=== PATIENT | male | born 1995 | race Caucasian/White ===

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

== ENCOUNTER 2017-01-08 13:56 | Emergency (ER) | payer MEDICAID ==
--- NOTE | 2017-01-08 14:16 | EDM.PDOC ---
ED HPI GENERAL MEDICAL PROBLEM - General Chief Complaint: Respiratory Problem Stated Complaint: Rx NEEDED Time Seen by Provider: 01/08/17 14:02 - History of Present Illness INITIAL COMMENTS - FREE TEXT/NARRATIVE: HISTORY AND PHYSICAL: History of present illness: The patient is a 21-year-old male with a history of asthma who presents for medication refill of his albuterol for his nebulizer machine as well as his Ventolin inhaler. Patient states he does nebulizer treatments when he needs them and often times he needs them at nighttime because he feels tight. Patient ran out of the albuterol for the nebulizer 3 days ago and ran out of his hand- held Ventolin yesterday. He has had no fever chills runny nose or new cough but says that he does feel somewhat tight from his asthma. He is not been on prednisone recently. The patient was seen here the beginning of November for med refill and did not follow-up and that was discussed as well. He denies any abdominal pain chest pain nausea or vomiting. Patient states he was a smoker and he has since quit Review of systems: As per history of present illness and below otherwise all systems reviewed and negative. Past medical history: As per history of present illness and as reviewed below otherwise noncontributory. Surgical history: As per history of present illness and as reviewed below otherwise noncontributory. Social history: No reported history of drug or alcohol abuse. Family history: As per history of present illness and as reviewed below otherwise noncontributory. Physical exam: Gen.: Well-developed thin man who is nontoxic and vital signs reviewed by me. He is speaking clearly and easily without breathlessness HEENT: Atraumatic, normocephalic, negative for conjunctival pallor or scleral icterus, mucous membranes moist, throat clear, neck supple, nontender, trachea midline. Lungs: Clear to auscultation with some scattered wheezing in the bases but no worker breathing or sensory muscle use, breath sounds equal bilaterally, chest nontender. Heart: S1S2, regular rate and rhythm no overt murmurs. Abdomen: Soft, nondistended, nontender. NABS Skin: Normal turgor no evidence of any diaphoresis or overt rashes Genitourinary: Deferred. Rectal: Deferred. Extremities: Atraumatic, negative for cords or calf pain. Neurovascular unremarkable. Neuro: Awake, alert, oriented. Cranial nerves II through XII unremarkable. Cerebellum unremarkable. Motor and sensory unremarkable throughout. Exam nonfocal. Diagnostics: [] Therapeutics: [] The patient was offered a DuoNeb when necessary he would like to defer and do it at home. I will write him a prescription for albuterol for his machine, Ventolin inhaler, prednisone. Advised him that he must call and follow-up in our clinic for further care and refills and he must push hydration. Impression: Medication refill Definitive disposition and diagnosis as appropriate pending reevaluation and review of above. - Related Data Allergies Allergy/AdvReac Type Severity Reaction Status Date / Time No Known Allergies Allergy Verified 01/08/17 13:59 Home Meds: Home Meds Albuterol [Proventil Neb Soln] 1 11/29/16 [History] Albuterol [Ventolin HFA] 1 puff INH TID 11/29/16 [History] Past Medical History HEENT History: Reports: None Cardiovascular History: Reports: None Respiratory History: Reports: Asthma - Past Surgical History HEENT Surgical History: Reports: None Social & Family History - Tobacco Use Smoking Status *Q: Former Smoker Used Tobacco, but Quit: Yes Month Tobacco Last Used: 5 ED ROS GENERAL - Review of Systems Review Of Systems: ROS reveals no pertinent complaints other than HPI. ED EXAM, GENERAL - Physical Exam Exam: See Below (See dictation) Course - Vital Signs Last Recorded V/S: Last Vital Signs Temp 36.4 C 01/08/17 14:00 Pulse 99 01/08/17 14:00 Resp 20 01/08/17 14:00 BP 127/82 01/08/17 14:00 Pulse Ox 98 01/08/17 14:00 Departure - Departure Time of Disposition: 14:16 Disposition: Home, Self-Care 01 Condition: Good Clinical Impression: Medication refill - Discharge Information Referrals: PCP,None [Primary Care Provider] - Additional Instructions: The following information is given to patients seen in the emergency department who are being discharged to home. This information is to outline your options for follow-up care. We provide all patients seen in our emergency department with a follow-up referral. The need for follow-up, as well as the timing and circumstances, are variable depending upon the specifics of your emergency department visit. If you don't have a primary care physician on staff, we will provide you with a referral. We always advise you to contact your personal physician following an emergency department visit to inform them of the circumstance of the visit and for follow-up with them and/or the need for any referrals to a consulting specialist. The emergency department will also refer you to a specialist when appropriate. This referral assures that you have the opportunity for followup care with a specialist. All of these measure are taken in an effort to provide you with optimal care, which includes your followup. Under all circumstances we always encourage you to contact your private physician who remains a resource for coordinating your care. When calling for followup care, please make the office aware that this follow-up is from your recent emergency room visit. If for any reason you are refused follow-up, please contact the [facility] emergency department at and ask to speak to the emergency department charge nurse. [facility] Primary care- Internal Medicine and Family [address] [address] Please push hydration and use your inhaler or the albuterol in the machine every 6 hours for the next 24 hours and then as needed. Take prednisone until it is finished. Please call the clinic and schedule an appointment for follow- up and further care early next week and return to ER as needed and as discussed
[2017-01-08 14:26] VITALS: BP 118/62
== END 2017-01-08 14:24 | disposition home or self-care (01) ==
LOC: MW.ED 13:56
DX: Z76.0 Encounter for issue of repeat prescription (principal); J45.909 Unspecified asthma, uncomplicated; Z87.891 Personal history of nicotine dependence
CPT/HCPCS: 99281

== ENCOUNTER 2017-02-08 23:13 | Emergency (ER) | payer MEDICAID ==
--- NOTE | 2017-02-09 00:31 | EDM.PDOC ---
ED HPI GENERAL MEDICAL PROBLEM - General Chief Complaint: General Stated Complaint: MEDICAL CLEARANCE Time Seen by Provider: 02/09/17 00:29 Source of Information: Reports: Patient - History of Present Illness INITIAL COMMENTS - FREE TEXT/NARRATIVE: HISTORY AND PHYSICAL: History of present illness: []Patient presents via [facility] in handcuffs he was arrested for driving while intoxicated He has a history of ADHD and asthma is clinically intoxicated but alert cooperative easily examined No fever nausea vomiting chills sweats no chest pain shortness breath headache dizziness palpitation about a urine symptoms Review of systems: As per history of present illness and below otherwise all systems reviewed and negative. Past medical history: As per history of present illness and as reviewed below otherwise noncontributory. Surgical history: As per history of present illness and as reviewed below otherwise noncontributory. Social history: No reported history of drug or alcohol abuse. Family history: As per history of present illness and as reviewed below otherwise noncontributory. Physical exam: HEENT: Atraumatic, normocephalic, pupils reactive, negative for conjunctival pallor or scleral icterus, mucous membranes moist, throat clear, neck supple, nontender, trachea midline. Lungs: Clear to auscultation, breath sounds equal bilaterally, chest nontender. Heart: S1S2, regular, negative for clicks, rubs, or JVD. Abdomen: Soft, nondistended, nontender. Negative for masses or hepatosplenomegaly. Negative for costovertebral tenderness. Pelvis: Stable nontender. Genitourinary: Deferred. Rectal: Deferred. Extremities: Atraumatic, negative for cords or calf pain. Neurovascular unremarkable. Neuro: Awake, alert, oriented. Cranial nerves II through XII unremarkable. Cerebellum unremarkable. Motor and sensory unremarkable throughout. Exam nonfocal. Diagnostics: [Clinical ] Therapeutics: [None ] Impression: [Clinical alcohol intoxication Chronic history of baseline Patient medically cleared for incarceration his albuterol inhaler will be available as needed] Definitive disposition and diagnosis as appropriate pending reevaluation and review of above. - Related Data Allergies Allergy/AdvReac Type Severity Reaction Status Date / Time cat dander Allergy Hives Verified 02/08/17 23:37 dog dander Allergy Hives Verified 02/08/17 23:37 Home Meds: Home Meds Albuterol [Proventil Neb Soln] 1 11/29/16 [History] Albuterol [Ventolin HFA] 1 puff INH TID 11/29/16 [History] Past Medical History HEENT History: Reports: None Cardiovascular History: Reports: None Respiratory History: Reports: Asthma Gastrointestinal History: Reports: None Genitourinary History: Reports: None Musculoskeletal History: Reports: None Neurological History: Reports: None Psychiatric History: Reports: ADHD Endocrine/Metabolic History: Reports: None Hematologic History: Reports: None Immunologic History: Reports: None Oncologic (Cancer) History: Reports: None Dermatologic History: Reports: None - Infectious Disease History Infectious Disease History: Reports: None - Past Surgical History Head Surgeries/Procedures: Reports: None HEENT Surgical History: Reports: None GI Surgical History: Reports: None Male Surgical History: Reports: None Social & Family History - Tobacco Use Smoking Status *Q: Current Every Day Smoker Years of Tobacco use: 4 Packs/Tins Daily: 0.3 Used Tobacco, but Quit: Yes Month Tobacco Last Used: 5 - Caffeine Use Caffeine Use: Reports: None - Recreational Drug Use Recreational Drug Use: Yes Drug Use in Last 12 Months: No Recreational Drug Type: Reports: Marijuana/Hashish ED ROS GENERAL - Review of Systems Review Of Systems: ROS reveals no pertinent complaints other than HPI. ED EXAM, GENERAL - Physical Exam Exam: See Below Course - Vital Signs Last Recorded V/S: Last Vital Signs Temp 37.1 C 02/08/17 23:38 Pulse 111 H 02/08/17 23:38 Resp 17 02/08/17 23:38 BP 125/62 02/08/17 23:38 Pulse Ox 94 L 02/08/17 23:38 Departure - Departure Time of Disposition: 00:30 Disposition: Home, Self-Care 01 Condition: Good Clinical Impression: Alcohol intoxication - Discharge Information Referrals: PCP,None [Primary Care Provider] - Additional Instructions: The following information is given to patients seen in the emergency department who are being discharged to home. This information is to outline your options for follow-up care. We provide all patients seen in our emergency department with a follow-up referral. The need for follow-up, as well as the timing and circumstances, are variable depending upon the specifics of your emergency department visit. If you don't have a primary care physician on staff, we will provide you with a referral. We always advise you to contact your personal physician following an emergency department visit to inform them of the circumstance of the visit and for follow-up with them and/or the need for any referrals to a consulting specialist. The emergency department will also refer you to a specialist when appropriate. This referral assures that you have the opportunity for follow-up care with a specialist. All of these measure are taken in an effort to provide you with optimal care, which includes your follow-up. Under all circumstances we always encourage you to contact your private physician who remains a resource for coordinating your care. When calling for follow-up care, please make the office aware that this follow-up is from your recent emergency room visit. If for any reason you are refused follow-up, please contact the [facility] emergency department at and asked to speak to the emergency department charge nurse.
[2017-02-09 05:03] VITALS: BP 127/73
== END 2017-02-09 00:56 ==
LOC: MW.ED 23:13
DX: F10.129 Alcohol abuse with intoxication, unspecified (principal); F17.210 Nicotine dependence, cigarettes, uncomplicated; J45.909 Unspecified asthma, uncomplicated; Z91.048 Other nonmedicinal substance allergy status
CPT/HCPCS: 99282; 99283

== ENCOUNTER 2017-02-27 13:28 | Emergency (ER) | payer MEDICAID ==
[2017-02-27 13:40] VITALS: BP 121/74
--- NOTE | 2017-02-27 13:47 | EDM.PDOC ---
ED HPI GENERAL MEDICAL PROBLEM - General Chief Complaint: Respiratory Problem Stated Complaint: REFILL ON INHALER Time Seen by Provider: 02/27/17 13:34 - History of Present Illness INITIAL COMMENTS - FREE TEXT/NARRATIVE: HISTORY AND PHYSICAL: History of present illness: The patient is a 21-year-old male with a long-standing history of asthma since he was a child who presents after running out of his inhaler last evening. He says he has been using it only as needed and not on a regular basis and does not have a local provider as he has no healthcare insurance. He currently says that he does not feel terribly short of breath but wants to have his inhaler because he does have flareups and wants to have that resource. He has no chest pain or shortness of breath currently no abdominal pain no fevers no chills no upper respiratory symptoms. Eating and drinking normally Review of systems: As per history of present illness and below otherwise all systems reviewed and negative. Past medical history: As per history of present illness and as reviewed below otherwise noncontributory. Surgical history: As per history of present illness and as reviewed below otherwise noncontributory. Social history: No reported history of drug or alcohol abuse. Family history: As per history of present illness and as reviewed below otherwise noncontributory. Physical exam: Gen.: Well-developed well-nourished man speaking clearly and easily in the ED without breathlessness. Vital signs of been reviewed by me HEENT: Atraumatic, normocephalic, negative for conjunctival pallor or scleral icterus, mucous membranes moist, throat clear, neck supple, nontender, trachea midline. Lungs: Clear to auscultation, breath sounds equal bilaterally, chest nontender. No work or breathing no stridor no wheezing Heart: S1S2, regular rate and rhythm no overt murmurs Abdomen: Soft, nondistended, nontender. NABS. Pelvis: Deferred Genitourinary: Deferred. Rectal: Deferred. Extremities: Atraumatic, full range of motion. Neurovascular unremarkable. Neuro: Awake, alert, oriented. Cranial nerves II through XII unremarkable. Cerebellum unremarkable. Motor and sensory unremarkable throughout. Exam nonfocal. Diagnostics: [] Therapeutics: Spacer and teaching Impression: Medication refill for inhaler Definitive disposition and diagnosis as appropriate pending reevaluation and review of above. - Related Data Allergies Allergy/AdvReac Type Severity Reaction Status Date / Time cat dander Allergy Hives Verified 02/27/17 13:39 dog dander Allergy Hives Verified 02/27/17 13:39 Home Meds: Home Meds Albuterol [Proventil Neb Soln] 1 dose INH ASDIRECTED 11/29/16 [History] Albuterol [Ventolin HFA] 1 puff INH TID 11/29/16 [History] Past Medical History HEENT History: Reports: None Cardiovascular History: Reports: None Respiratory History: Reports: Asthma Gastrointestinal History: Reports: None Genitourinary History: Reports: None Musculoskeletal History: Reports: None Neurological History: Reports: None Psychiatric History: Reports: ADHD Endocrine/Metabolic History: Reports: None Hematologic History: Reports: None Immunologic History: Reports: None Oncologic (Cancer) History: Reports: None Dermatologic History: Reports: None - Infectious Disease History Infectious Disease History: Reports: Chicken Pox - Past Surgical History Head Surgeries/Procedures: Reports: None HEENT Surgical History: Reports: None GI Surgical History: Reports: None Male Surgical History: Reports: None Social & Family History - Family History Family Medical History: Noncontributory - Tobacco Use Smoking Status *Q: Never Smoker Years of Tobacco use: 4 Packs/Tins Daily: 0.3 Used Tobacco, but Quit: Yes Month Tobacco Last Used: 5 - Caffeine Use Caffeine Use: Reports: None - Recreational Drug Use Recreational Drug Use: No Drug Use in Last 12 Months: No Recreational Drug Type: Reports: Marijuana/Hashish ED ROS GENERAL - Review of Systems Review Of Systems: ROS reveals no pertinent complaints other than HPI. ED EXAM, GENERAL - Physical Exam Exam: See Below (See dictation) Course - Vital Signs Last Recorded V/S: Last Vital Signs Temp 37.0 C 02/27/17 13:36 Pulse 92 02/27/17 13:36 Resp 18 02/27/17 13:36 BP 121/74 02/27/17 13:36 Pulse Ox 99 02/27/17 13:36 - Orders/Labs/Meds Orders: Active Orders 24 hr Category Date Time Status Communication Order [RC] STAT Care 02/27/17 13:44 Ordered Departure - Departure Time of Disposition: 13:46 Disposition: Home, Self-Care 01 Condition: Good Clinical Impression: Medication refill - Discharge Information Referrals: PCP,None [Primary Care Provider] - Additional Instructions: The following information is given to patients seen in the emergency department who are being discharged to home. This information is to outline your options for follow-up care. We provide all patients seen in our emergency department with a follow-up referral. The need for follow-up, as well as the timing and circumstances, are variable depending upon the specifics of your emergency department visit. If you don't have a primary care physician on staff, we will provide you with a referral. We always advise you to contact your personal physician following an emergency department visit to inform them of the circumstance of the visit and for follow-up with them and/or the need for any referrals to a consulting specialist. The emergency department will also refer you to a specialist when appropriate. This referral assures that you have the opportunity for followup care with a specialist. All of these measure are taken in an effort to provide you with optimal care, which includes your followup. Under all circumstances we always encourage you to contact your private physician who remains a resource for coordinating your care. When calling for followup care, please make the office aware that this follow-up is from your recent emergency room visit. If for any reason you are refused follow-up, please contact the [facility] emergency department at and ask to speak to the emergency department charge nurse. [facility] Primary care- Internal Medicine and Family [address] [id number] Please use your inhaler with spacer you have been given and directed. Please call and follow-up with him in our clinic physicians in the next few days for further care and evaluation as needed. Return to ER as needed and as discussed. - My Orders Last 24 Hours: My Active Orders 02/27/17 13:44 Communication Order [RC] STAT - Assessment/Plan Last 24 Hours: My Active Orders 02/27/17 13:44 Communication Order [RC] STAT
== END 2017-02-27 13:58 | disposition home or self-care (01) ==
LOC: MW.ED 13:28
DX: Z76.0 Encounter for issue of repeat prescription (principal); J45.909 Unspecified asthma, uncomplicated
CPT/HCPCS: 99281; 99282

== ENCOUNTER 2017-05-13 17:09 | Emergency (ER) | payer SELFPAY | END 2017-05-13 17:31 | disposition left against medical advice (07) | LOC: MW.ED 17:09 | DX: Z53.21 Procedure and treatment not carried out due to patient leaving prior to being seen by health care provider (principal) ==

== ENCOUNTER 2017-05-13 18:19 | Emergency (ER) | payer MEDICAID ==
--- NOTE | 2017-05-13 18:30 | EDM.PDOC ---
ED HPI GENERAL MEDICAL PROBLEM - General Chief Complaint: Medication Administration Stated Complaint: ASTHMA Time Seen by Provider: 05/13/17 18:25 - History of Present Illness INITIAL COMMENTS - FREE TEXT/NARRATIVE: HISTORY AND PHYSICAL: History of present illness: Patient's 21-year-old male presents with concern of medication refill he is a known history of asthma and denies any other complaints Review of systems: As per history of present illness and below otherwise all systems reviewed and negative. Past medical history: As per history of present illness and as reviewed below otherwise noncontributory. Surgical history: As per history of present illness and as reviewed below otherwise noncontributory. Social history: No reported history of drug or alcohol abuse. Family history: As per history of present illness and as reviewed below otherwise noncontributory. Physical exam: HEENT: Atraumatic, normocephalic, pupils reactive, negative for conjunctival pallor or scleral icterus, mucous membranes moist, throat clear, neck supple, nontender, trachea midline. Lungs: Clear to auscultation, breath sounds equal bilaterally, chest nontender. Heart: S1S2, regular, negative for clicks, rubs, or JVD. Abdomen: Soft, nondistended, nontender. Negative for masses or hepatosplenomegaly. Negative for costovertebral tenderness. Pelvis: Stable nontender. Genitourinary: Deferred. Rectal: Deferred. Extremities: Atraumatic, negative for cords or calf pain. Neurovascular unremarkable. Neuro: Awake, alert, oriented. Cranial nerves II through XII unremarkable. Cerebellum unremarkable. Motor and sensory unremarkable throughout. Exam nonfocal. Diagnostics: None Therapeutics: None Impression: #1 medication refill Definitive disposition and diagnosis as appropriate pending reevaluation and review of above. - Related Data Allergies Allergy/AdvReac Type Severity Reaction Status Date / Time cat dander Allergy Hives Verified 02/27/17 13:39 dog dander Allergy Hives Verified 02/27/17 13:39 Home Meds: Home Meds Albuterol [Proventil Neb Soln] 1 dose INH ASDIRECTED 11/29/16 [History] Albuterol [Ventolin HFA] 1 puff INH TID 11/29/16 [History] Past Medical History HEENT History: Reports: None Cardiovascular History: Reports: None Respiratory History: Reports: Asthma Gastrointestinal History: Reports: None Genitourinary History: Reports: None Musculoskeletal History: Reports: None Neurological History: Reports: None Psychiatric History: Reports: ADHD Endocrine/Metabolic History: Reports: None Hematologic History: Reports: None Immunologic History: Reports: None Oncologic (Cancer) History: Reports: None Dermatologic History: Reports: None - Infectious Disease History Infectious Disease History: Reports: Chicken Pox - Past Surgical History Head Surgeries/Procedures: Reports: None HEENT Surgical History: Reports: None GI Surgical History: Reports: None Male Surgical History: Reports: None Social & Family History - Family History Family Medical History: Noncontributory - Tobacco Use Smoking Status *Q: Never Smoker Years of Tobacco use: 4 Packs/Tins Daily: 0.3 Used Tobacco, but Quit: Yes Month Tobacco Last Used: 5 - Caffeine Use Caffeine Use: Reports: None - Recreational Drug Use Recreational Drug Use: No Drug Use in Last 12 Months: No Recreational Drug Type: Reports: Marijuana/Hashish ED ROS GENERAL - Review of Systems Review Of Systems: ROS reveals no pertinent complaints other than HPI. ED EXAM, GENERAL - Physical Exam Exam: See Below (See dictation) Departure - Departure Time of Disposition: 18:30 Disposition: Home, Self-Care 01 Condition: Good Clinical Impression: Medication refill - Discharge Information Referrals: PCP,None [Primary Care Provider] - Additional Instructions: The following information is given to patients seen in the emergency department who are being discharged to home. This information is to outline your options for follow-up care. We provide all patients seen in our emergency department with a follow-up referral. The need for follow-up, as well as the timing and circumstances, are variable depending upon the specifics of your emergency department visit. If you don't have a primary care physician on staff, we will provide you with a referral. We always advise you to contact your personal physician following an emergency department visit to inform them of the circumstance of the visit and for follow-up with them and/or the need for any referrals to a consulting specialist. The emergency department will also refer you to a specialist when appropriate. This referral assures that you have the opportunity for followup care with a specialist. All of these measure are taken in an effort to provide you with optimal care, which includes your followup. Under all circumstances we always encourage you to contact your private physician who remains a resource for coordinating your care. When calling for followup care, please make the office aware that this follow-up is from your recent emergency room visit. If for any reason you are refused follow-up, please contact the [facility] emergency department at and asked to speak to the emergency department charge nurse. [facility] Primary [facility] [address] [place] [id number] Albuterol as prescribed call to schedule appointment with primary care above return as needed as discussed
[2017-05-13 19:13] VITALS: BP 114/70
== END 2017-05-13 19:10 | disposition home or self-care (01) ==
LOC: MW.ED 18:19
DX: Z76.0 Encounter for issue of repeat prescription (principal); J45.909 Unspecified asthma, uncomplicated; Z87.891 Personal history of nicotine dependence; Z91.048 Other nonmedicinal substance allergy status
CPT/HCPCS: 99282

== ENCOUNTER 2017-07-04 19:08 | Emergency (ER) | payer SELFPAY ==
[2017-07-04 19:27] VITALS: BP 113/70
[2017-07-04] MEDS ORDERED: Albuterol/Ipratropium 3.0-0.5 MG/3 ML Neb Soln NEB ONE (19:27)
--- NOTE | 2017-07-04 19:51 | EDM.PDOC ---
ED HPI GENERAL MEDICAL PROBLEM - General Chief Complaint: Respiratory Problem Stated Complaint: ASTHMA ATTACK Time Seen by Provider: 07/04/17 19:28 Source of Information: Reports: Patient History Limitations: Reports: No Limitations - History of Present Illness INITIAL COMMENTS - FREE TEXT/NARRATIVE: HISTORY AND PHYSICAL: History of present illness: Patient is a 21-year-old male who presents to the emergency room with complaints of dyspnea since this afternoon. History of asthma, which he uses a rescue albuterol inhaler for. He states over the past week he has not needed his albuterol inhaler as much as normal, stating "I thought my asthma was getting better". Recently ran out of his albuterol inhaler and had not filled his prescription. Today he woke up from his nap and started having difficulty breathing, did not have an inhaler available to him. Denies any fever, chills, chest pain, abdominal pain, nausea, vomiting or diarrhea/constipation. Review of systems: As per history of present illness and below otherwise all systems reviewed and negative. Past medical history: As per history of present illness and as reviewed below otherwise noncontributory. Surgical history: As per history of present illness and as reviewed below otherwise noncontributory. Social history: No reported history of drug or alcohol abuse. Family history: As per history of present illness and as reviewed below otherwise noncontributory. Physical exam: General: Well-developed and well-nourished 21-year-old male. Alert and oriented. Nontoxic appearing and in no acute distress. HEENT: Atraumatic, normocephalic, pupils reactive, negative for conjunctival pallor or scleral icterus, mucous membranes moist, throat clear, neck supple, nontender, trachea midline. Lungs: Inspiratory and expiratory wheezing noted throughout, chest nontender. Heart: S1S2, regular rate and rhythm Abdomen: Soft, nondistended, nontender. Negative for masses or hepatosplenomegaly. Negative for costovertebral tenderness. Pelvis: Stable nontender. Genitourinary: Deferred. Rectal: Deferred. Extremities: Atraumatic, negative for cords or calf pain. Neurovascular unremarkable. Neuro: Awake, alert, oriented. Cranial nerves II through XII unremarkable. Cerebellum unremarkable. Motor and sensory unremarkable throughout. Exam nonfocal. Declined Solumedrol IM. Is willing to do a chest xray, but declines labs work. Patient's lung sounds have improved significantly since his DuoNeb. Vital signs are stable. Chest x-ray shows no acute findings, infiltrates or pneumonia. We' ll treat with Medrol Dosepak. Encourage patient to fill his prescription for his inhaler. Diagnostics: Chest x-ray Therapeutics: DuoNeb Impression: Asthma exacerbation Plan: 1. Please fill your inhaler as directed. Take the Medrol Dosepak as prescribed. 2. Follow-up with your primary care provider in the next 1-2 days. Return to the ED as needed and as discussed. Definitive disposition and diagnosis as appropriate pending reevaluation and review of above. Onset: Today Duration: Hour(s): Location: Reports: Chest chest Pain Score (Numeric/FACES): 6 - Related Data Allergies Allergy/AdvReac Type Severity Reaction Status Date / Time cat dander Allergy Hives Verified 07/04/17 19:27 dog dander Allergy Hives Verified 07/04/17 19:27 Home Meds: Home Meds Albuterol [Ventolin HFA] 2 puff INH ASDIRECTED PRN 11/29/16 [History] Past Medical History HEENT History: Reports: None Cardiovascular History: Reports: None Respiratory History: Reports: Asthma Gastrointestinal History: Reports: None Genitourinary History: Reports: None Musculoskeletal History: Reports: None Neurological History: Reports: None Psychiatric History: Reports: ADHD Endocrine/Metabolic History: Reports: None Hematologic History: Reports: None Immunologic History: Reports: None Oncologic (Cancer) History: Reports: None Dermatologic History: Reports: None - Infectious Disease History Infectious Disease History: Reports: Chicken Pox - Past Surgical History Head Surgeries/Procedures: Reports: None HEENT Surgical History: Reports: None GI Surgical History: Reports: None Male Surgical History: Reports: None Social & Family History - Family History Family Medical History: Noncontributory - Tobacco Use Smoking Status *Q: Never Smoker Years of Tobacco use: 4 Packs/Tins Daily: 0.3 Used Tobacco, but Quit: Yes Month Tobacco Last Used: 5 - Caffeine Use Caffeine Use: Reports: None - Recreational Drug Use Recreational Drug Use: No Drug Use in Last 12 Months: No Recreational Drug Type: Reports: Marijuana/Hashish ED ROS GENERAL - Review of Systems Review Of Systems: ROS reveals no pertinent complaints other than HPI. ED EXAM, GENERAL - Physical Exam Exam: See Below (See dictation) Course - Vital Signs Last Recorded V/S: Last Vital Signs Temp 99.1 F 07/04/17 19:24 Pulse 92 07/04/17 19:24 Resp 18 07/04/17 19:24 BP 113/70 07/04/17 19:24 Pulse Ox 96 07/04/17 19:24 - Orders/Labs/Meds Orders: Active Orders 24 hr Category Date Time Status RT Aerosol Therapy [RC] ASDIRECTED Care 07/04/17 19:28 Active Chest 2V [CR] Stat Exams 07/04/17 19:31 Ordered Meds: Medications Discontinued Medications Generic Name Dose Route Start Last Admin Trade Name Freq PRN Reason Stop Dose Admin Albuterol/Ipratropium 3 ml 07/04/17 19:27 Duoneb 3.0-0.5 Mg/3 Ml NEB 07/04/17 19:28 ONETIME ONE Departure - Departure Time of Disposition: 20:11 Disposition: Home, Self-Care 01 Clinical Impression: Exacerbation of asthma Qualifiers: Asthma severity: moderate Asthma persistence: persistent Qualified Code(s): J45.41 - Moderate persistent asthma with (acute) exacerbation - Discharge Information Instructions: Asthma, Adult, [id number] Referrals: PCP,None [Primary Care Provider] - Forms: ED Department Discharge Additional Instructions: The following information is given to patients seen in the emergency department who are being discharged to home. This information is to outline your options for follow-up care. We provide all patients seen in our emergency department with a follow-up referral. The need for follow-up, as well as the timing and circumstances, are variable depending upon the specifics of your emergency department visit. If you don't have a primary care physician on staff, we will provide you with a referral. We always advise you to contact your personal physician following an emergency department visit to inform them of the circumstance of the visit and for follow-up with them and/or the need for any referrals to a consulting specialist. The emergency department will also refer you to a specialist when appropriate. This referral assures that you have the opportunity for follow-up care with a specialist. All of these measure are taken in an effort to provide you with optimal care, which includes your follow-up. Under all circumstances we always encourage you to contact your private physician who remains a resource for coordinating your care. When calling for follow-up care, please make the office aware that this follow-up is from your recent emergency room visit. If for any reason you are refused follow-up, please contact the [facility] Emergency Department at and asked to speak to the emergency department charge nurse. [facility] Primary Care [address] [place] [id number] 1. Please fill your inhaler as directed. Take the Medrol Dosepak as prescribed. 2. Follow-up with your primary care provider in the next 1-2 days. Return to the ED as needed and as discussed. - My Orders Last 24 Hours: My Active Orders 07/04/17 19:31 Chest 2V [CR] Stat - Assessment/Plan Last 24 Hours: My Active Orders 07/04/17 19:31 Chest 2V [CR] Stat
--- NOTE | 2017-07-05 10:20 | CR ---
EXAM DATE: 07/04/17 PATIENT'S AGE: 21 Patient: SAÚL CABRERA Facility: [place], [place] Site . Site : 1995 Study: XRay Chest [id number]/12/2018 7:53:18 PM Ordering Physician: Doctor Braun Final Report: INDICATION: asthma attack TECHNIQUE: Chest 2 views COMPARISON: None FINDINGS: Cardiovascular and mediastinum: Heart size and vasculature are normal in caliber and appearance. Mediastinum is within normal limits. Lungs and pleural spaces: No focal consolidation. No sign of pleural effusion. No pneumothorax. Bones and soft tissues: No significant findings. IMPRESSION: No acute cardiopulmonary disease. Dictated by Ernesto Lopes MD @ 07/04/2017 7:57:20 PM Dictated by: Ernesto Lopes MD @ 07/04/2017 19:57:48 (Electronic Signature) Report Signed by Proxy. HAZEL
== END 2017-07-04 20:27 | disposition home or self-care (01) ==
LOC: MW.ED 19:08
DX: J45.41 Moderate persistent asthma with (acute) exacerbation (principal); Z87.891 Personal history of nicotine dependence; Z91.09 Other allergy status, other than to drugs and biological substances
CPT/HCPCS: 71046; 71046-26; 94640; 99283; 99285-25

== ENCOUNTER 2017-08-21 10:51 | Emergency (ER) | payer SELFPAY ==
[2017-08-21] MEDS ORDERED: Albuterol/Ipratropium 3.0-0.5 MG/3 ML Neb Soln NEB ONE ×2 (10:56→11:37)
[2017-08-21] MEDS ORDERED: Sodium Chloride 0.9% 2.5 ML Syringe FLUSH PRN (10:57)
[2017-08-21] MEDS ORDERED: Sodium Chloride 0.9% 10 ML Syringe FLUSH PRN (10:57)
[2017-08-21] MEDS ORDERED: methylPREDNISolone Sodium Succinate 125 MG/2 ML SDV IVPUSH ONE (10:57)
[2017-08-21] MEDS ORDERED: Sodium Chloride 0.9% 1,000 ML IV ONE (10:57)
--- NOTE | 2017-08-21 11:00 | EDM.PDOC ---
ED HPI GENERAL MEDICAL PROBLEM - General Chief Complaint: Respiratory Problem Stated Complaint: ASTHMA ISSUES Time Seen by Provider: 08/21/17 10:58 Source of Information: Reports: Patient History Limitations: Reports: No Limitations - History of Present Illness INITIAL COMMENTS - FREE TEXT/NARRATIVE: HISTORY AND PHYSICAL: []21-year-old man presents with difficulty breathing History of Present Illness: []He ran out of his inhaler 2 days ago has had increased coughing and shortness of breath for 4 days He has history of asthma Allergies to cats and dog dander Review of Systems: As per history of present illness and below otherwise all systems reviewed and negative. Past medical history: As per history of present illness and as reviewed below otherwise noncontributory. Surgical history: As per history of present illness and as reviewed below otherwise noncontributory. Social history: No reported history of drug or alcohol abuse. Family history: As per history of present illness and as reviewed below otherwise noncontributory. Physical exam: Alert and oriented male answering questions in short bursts in between 2-3 words. Having chest pain while he was trying to breathe 2/10 HEENT: Atraumatic, normocehpalic, pupils reactive, negative for conjunctival pallor or scleral icterus, mucous membranes moist, throat clear, neck supple, nontender, trachea midline. Lungs: wheeze on auscultation, breath sounds equal bilaterally, chest non tender. shallow. Heart: S1S2, regular, negative for clicks, rubs, or JVD. Abdomen: Soft, nondistended, nontender. Negative for masses or hepatossplenmegaly. Negative for costovertebral tenderness. Pelvis: Stable nontender. Genitourinary: Deferred. Rectal: Deferred Extremities: Atraumatic, negative for cords or calf pain. Neurovascular unremarkable. Neuro: Awake, alert, oriented. Cranial nerves II through XII unremarkable. Cerebellum unremarkable. Motor and sensory unremarkable throughout. Exam nonfocal. After treatments patient has no wheezing he has improved dramatically with his breathing. Diagnostics: []CBC CMP chest x-ray Therapeutics: []DuoNeb Impression: []Asthma exacerbation Plan: []Discharged to home Prescription for Ventolin hand-held inhaler Prescription for albuterol for neb machine Home and rest Follow-up with your primary care provider Return to the emergency room as directed and discussed Definitive disposition and diagnosis as appropriate pending reevaluation and review of above. Onset: Gradual Duration: Day(s): (4), Getting Worse Location: Reports: Chest Quality: Reports: Pressure, Same as Previous Episode Severity: Moderate Improves with: Reports: None Worsens with: Reports: None Middle Chest Pain Score (Numeric/FACES): 2 - Related Data Allergies Allergy/AdvReac Type Severity Reaction Status Date / Time cat dander Allergy Hives Verified 08/21/17 11:00 dog dander Allergy Hives Verified 08/21/17 11:00 Home Meds: Home Meds Albuterol [Ventolin HFA] 2 puff INH ASDIRECTED PRN 11/29/16 [History] Albuterol [Ventolin HFA] 1 puff INH Q6HR #1 inhaler 07/04/17 [Rx] Albuterol [IJD: Albuterol] 2.5 mg .XX 5XDAY PRN #1 box 08/21/17 [Rx] Albuterol [Ventolin HFA] 1 puff INH Q2H #1 puff 08/21/17 [Rx] methylPREDNISolone [Medrol] 4 mg PO ASDIRECTED 08/21/17 [History] Past Medical History HEENT History: Reports: None Cardiovascular History: Reports: None Respiratory History: Reports: Asthma Gastrointestinal History: Reports: None Genitourinary History: Reports: None Musculoskeletal History: Reports: None Neurological History: Reports: None Psychiatric History: Reports: ADHD Endocrine/Metabolic History: Reports: None Hematologic History: Reports: None Immunologic History: Reports: None Oncologic (Cancer) History: Reports: None Dermatologic History: Reports: None - Infectious Disease History Infectious Disease History: Reports: Chicken Pox - Past Surgical History Head Surgeries/Procedures: Reports: None HEENT Surgical History: Reports: None GI Surgical History: Reports: None Male Surgical History: Reports: None Social & Family History - Family History Family Medical History: Noncontributory - Tobacco Use Smoking Status *Q: Never Smoker Years of Tobacco use: 4 Packs/Tins Daily: 0.3 Used Tobacco, but Quit: Yes Month/Year Tobacco Last Used: 5 Second Hand Smoke Exposure: Yes - Caffeine Use Caffeine Use: Reports: None - Recreational Drug Use Recreational Drug Use: No Drug Use in Last 12 Months: No Recreational Drug Type: Reports: Marijuana/Hashish ED ROS GENERAL - Review of Systems Review Of Systems: ROS reveals no pertinent complaints other than HPI. ED EXAM, GENERAL - Physical Exam Exam: See Below (see dictation) Course - Vital Signs Last Recorded V/S: Last Vital Signs Temp 36.8 C 08/21/17 10:53 Pulse 108 H 08/21/17 11:59 Resp 16 08/21/17 11:59 BP 111/79 08/21/17 11:59 Pulse Ox 100 08/21/17 11:59 - Orders/Labs/Meds Orders: Active Orders 24 hr Category Date Time Status RT Aerosol Therapy [RC] ASDIRECTED Care 08/21/17 10:56 Active RT Aerosol Therapy [RC] ASDIRECTED Care 08/21/17 11:37 Active Chest 2V [CR] Stat Exams 08/21/17 10:58 Taken Sodium Chloride 0.9% [Saline Flush] Med 08/21/17 10:57 Active 10 ml FLUSH ASDIRECTED PRN Sodium Chloride 0.9% [Saline Flush] Med 08/21/17 10:57 Active 2.5 ml FLUSH ASDIRECTED PRN Saline Lock Insert [OM.PC] Stat Oth 08/21/17 10:57 Ordered Medication Orders Sodium Chloride (Saline Flush) 10 ml FLUSH ASDIRECTED PRN PRN Reason: Keep Vein Open Last Admin: 08/21/17 11:13 Dose: 10 ml Sodium Chloride (Saline Flush) 2.5 ml FLUSH ASDIRECTED PRN PRN Reason: Keep Vein Open Last Admin: 08/21/17 11:14 Dose: 2.5 ml Labs: Laboratory Tests 08/21/17 08/21/17 Range/Units 11:01 11:01 WBC 7.25 (4.0-11.0) K/uL RBC 5.27 (4.50-5.90) M/uL Hgb 17.4 H (13.0-17.0) g/dL Hct 47.7 (38.0-50.0) % MCV 90.5 (80.0-98.0) fL MCH 33.0 H (27.0-32.0) pg MCHC 36.5 (31.0-37.0) g/dL RDW Std Deviation 41.8 (28.0-62.0) fl RDW Coeff of David 13 (11.0-15.0) % Plt Count 220 (150-400) K/uL MPV 9.70 (7.40-12.00) fL Neut % (Auto) 48.2 (48.0-80.0) % Lymph % (Auto) 37.2 (16.0-40.0) % Sumner % (Auto) 9.0 (0.0-15.0) % Eos % (Auto) 5.2 (0.0-7.0) % Baso % (Auto) 0.4 (0.0-1.5) % Neut # (Auto) 3.5 (1.4-5.7) K/uL Lymph # (Auto) 2.7 H (0.6-2.4) K/uL Sumner # (Auto) 0.7 (0.0-0.8) K/uL Eos # (Auto) 0.4 (0.0-0.7) K/uL Baso # (Auto) 0.0 (0.0-0.1) K/uL Nucleated RBC % 0.0 /100WBC Nucleated RBCs # 0 K/uL Sodium 142 (136-148) mmol/L Potassium 3.5 (3.5-5.1) mmol/L Chloride 106 (98-107) mmol/L Carbon Dioxide 23.9 (21.0-32.0) mmol/L BUN 6 L (7.0-18.0) mg/dL Creatinine 0.9 (0.8-1.3) mg/dL Est Cr Clr Drug Dosing 114.34 mL/min Estimated GFR (MDRD) > 60.0 ml/min Glucose 103 (74-106) mg/dL Calcium 8.6 (8.5-10.1) mg/dL Total Bilirubin 0.4 (0.2-1.0) mg/dL AST 28 (15-37) IU/L ALT 30 (14-63) IU/L Alkaline Phosphatase 81 (46-116) U/L Total Protein 7.8 (6.4-8.2) g/dL Albumin 4.1 (3.4-5.0) g/dL Globulin 3.7 H (2.0-3.5) g/dL Albumin/Globulin Ratio 1.1 L (1.3-2.8) Meds: Medications Generic Name Dose Route Start Last Admin Trade Name Freq PRN Reason Stop Dose Admin Sodium Chloride 10 ml 08/21/17 10:57 08/21/17 11:13 Saline Flush FLUSH 10 ml ASDIRECTED PRN Administration Keep Vein Open Sodium Chloride 2.5 ml 08/21/17 10:57 08/21/17 11:14 Saline Flush FLUSH 2.5 ml ASDIRECTED PRN Administration Keep Vein Open Discontinued Medications Generic Name Dose Route Start Last Admin Trade Name Freq PRN Reason Stop Dose Admin Albuterol/Ipratropium 3 ml 08/21/17 10:56 08/21/17 11:10 Duoneb 3.0-0.5 Mg/3 Ml NEB 08/21/17 10:57 3 ml ONETIME ONE Administration Albuterol/Ipratropium 3 ml 08/21/17 11:37 08/21/17 11:41 Duoneb 3.0-0.5 Mg/3 Ml NEB 08/21/17 11:38 3 ml ONETIME ONE Administration Sodium Chloride 1,000 mls @ 999 mls/hr 08/21/17 10:57 08/21/17 11:13 Normal Saline IV 08/21/17 11:57 999 mls/hr STAT ONE Administration Methylprednisolone Sodium Succinate 125 mg 08/21/17 10:57 08/21/17 11:13 Solu-Medrol IVPUSH 08/21/17 10:58 125 mg ONETIME ONE Administration Departure - Departure Time of Disposition: 12:09 Disposition: Home, Self-Care 01 Condition: Good Clinical Impression: Asthma exacerbation Qualifiers: Asthma severity: moderate Asthma persistence: persistent Qualified Code(s): J45.41 - Moderate persistent asthma with (acute) exacerbation - Discharge Information Prescriptions: Albuterol [IJD: Albuterol] 2.5 mg .XX 5XDAY PRN #1 box PRN Reason: Shortness Of Breath Albuterol [Ventolin HFA] 1 puff INH Q2H #1 puff Forms: ED Department Discharge - My Orders Last 24 Hours: My Active Orders 08/21/17 10:56 RT Aerosol Therapy [RC] ASDIRECTED 08/21/17 10:57 Sodium Chloride 0.9% [Saline Flush] 10 ml FLUSH ASDIRECTED PRN Sodium Chloride 0.9% [Saline Flush] 2.5 ml FLUSH ASDIRECTED PRN Saline Lock Insert [OM.PC] Stat 08/21/17 10:58 Chest 2V [CR] Stat 08/21/17 11:37 RT Aerosol Therapy [RC] ASDIRECTED - Assessment/Plan Last 24 Hours: My Active Orders 08/21/17 10:56 RT Aerosol Therapy [RC] ASDIRECTED 08/21/17 10:57 Sodium Chloride 0.9% [Saline Flush] 10 ml FLUSH ASDIRECTED PRN Sodium Chloride 0.9% [Saline Flush] 2.5 ml FLUSH ASDIRECTED PRN Saline Lock Insert [OM.PC] Stat 08/21/17 10:58 Chest 2V [CR] Stat 08/21/17 11:37 RT Aerosol Therapy [RC] ASDIRECTED
[2017-08-21 11:38] LABS: CHLORIDE,CL 106 mmol/L (98-107); SODIUM,NA 142 mmol/L (136-148)
[2017-08-21 12:00] VITALS: BP 111/79
--- NOTE | 2017-08-22 15:40 | CR ---
EXAM DATE: 08/21/17 PATIENT'S AGE: 21 Patient: SAÚL CABRERA Facility: [place], [place] Site Site : 1995 Study: XRay Chest [id number]/29/2018 11:48:55 AM Ordering Physician: ROSEANNA SHAFFER [employer] Final Report: INDICATION: Pain shortness of breath. TECHNIQUE: Two view chest. FINDINGS: The lungs are clear. The heart, mediastinum and pulmonary vessels are of normal size. There is no evidence of pleural disease. IMPRESSION: Negative chest. Dictated by Grace Rodrigues MD @ Aug 21 2017 12:03PM (Electronic Signature) Report Signed by Proxy. HAZEL
== END 2017-08-21 12:35 | disposition home or self-care (01) ==
LOC: MW.ED 10:51
DX: J45.41 Moderate persistent asthma with (acute) exacerbation (principal); Z91.048 Other nonmedicinal substance allergy status; Z87.891 Personal history of nicotine dependence
CPT/HCPCS: 36415; 71046; 80053; 85025; 94640; 96361; 96374; 99285; J2930; J7040; 99283

== ENCOUNTER 2017-10-26 09:15 | Emergency (ER) | payer SELFPAY ==
[2017-10-26] MEDS ORDERED: Albuterol/Ipratropium 3.0-0.5 MG/3 ML Neb Soln NEB ONE (09:21)
[2017-10-26] MEDS ORDERED: methylPREDNISolone Sodium Succinate 125 MG/2 ML SDV IM ONE (09:22)
--- NOTE | 2017-10-26 09:23 | EDM.PDOC ---
ED HPI GENERAL MEDICAL PROBLEM - General Stated Complaint: REFILL ON MEDS Time Seen by Provider: 10/26/17 09:23 Source of Information: Reports: Patient - History of Present Illness INITIAL COMMENTS - FREE TEXT/NARRATIVE: HISTORY AND PHYSICAL: History of present illness: [Patient with asthma history presents with shortness of breath is been out of his medications for a day does smoke marijuana routinely has allergies to pets no fever nausea vomiting chills sweats] complains of wheeze or shortness of breath No distress able speak in full sentences no pursed lip breathing Review of systems: As per history of present illness and below otherwise all systems reviewed and negative. Past medical history: As per history of present illness and as reviewed below otherwise noncontributory. Surgical history: As per history of present illness and as reviewed below otherwise noncontributory. Social history: No reported history of drug or alcohol abuse. Family history: As per history of present illness and as reviewed below otherwise noncontributory. Physical exam: HEENT: Atraumatic, normocephalic, pupils reactive, negative for conjunctival pallor or scleral icterus, mucous membranes moist, throat clear, neck supple, nontender, trachea midline. Lungs: Clear to auscultation, breath sounds equal bilaterally, chest nontender. Post DuoNeb and Solu-Medrol Heart: S1S2, regular, negative for clicks, rubs, or JVD. Abdomen: Soft, nondistended, nontender. Negative for masses or hepatosplenomegaly. Negative for costovertebral tenderness. Pelvis: Stable nontender. Genitourinary: Deferred. Rectal: Deferred. Extremities: Atraumatic, negative for cords or calf pain. Neurovascular unremarkable. Neuro: Awake, alert, oriented. Cranial nerves II through XII unremarkable. Cerebellum unremarkable. Motor and sensory unremarkable throughout. Exam nonfocal. Diagnostics: [Chest 1 view ] Therapeutics: [DuoNeb Solu-Medrol 125 mg IM HFA Medrol Dosepak ] Impression: [Asthma exacerbation ] Medication noncompliance Definitive disposition and diagnosis as appropriate pending reevaluation and review of above. chest when breathing Pain Score (Numeric/FACES): 3 - Related Data Allergies Allergy/AdvReac Type Severity Reaction Status Date / Time cat dander Allergy Hives Verified 10/26/17 09:25 dog dander Allergy Hives Verified 10/26/17 09:25 Home Meds: Home Meds Albuterol Sulfate [Proventil Hfa] 6.7 gm IH DAILY 10/26/17 [History] Past Medical History HEENT History: Reports: None Cardiovascular History: Reports: None Respiratory History: Reports: Asthma Other Respiratory History: hx of collapsed lung- right Gastrointestinal History: Reports: None Genitourinary History: Reports: None Musculoskeletal History: Reports: None Neurological History: Reports: None Psychiatric History: Reports: ADHD Endocrine/Metabolic History: Reports: None Hematologic History: Reports: None Immunologic History: Reports: None Oncologic (Cancer) History: Reports: None Dermatologic History: Reports: None - Infectious Disease History Infectious Disease History: Reports: Chicken Pox - Past Surgical History Head Surgeries/Procedures: Reports: None HEENT Surgical History: Reports: None GI Surgical History: Reports: None Male Surgical History: Reports: None Social & Family History - Family History Family Medical History: Noncontributory - Caffeine Use Caffeine Use: Reports: None ED ROS GENERAL - Review of Systems Review Of Systems: See Below ED EXAM, GENERAL - Physical Exam Exam: See Below Course - Vital Signs Last Recorded V/S: Last Vital Signs Temp 96.1 F 10/26/17 09:26 Pulse 83 10/26/17 10:10 Resp 20 10/26/17 10:10 BP 125/77 10/26/17 09:26 Pulse Ox 98 10/26/17 10:10 - Orders/Labs/Meds Orders: Active Orders 24 hr Category Date Time Status RT Aerosol Therapy [RC] ASDIRECTED Care 10/26/17 09:21 Active Chest 1V Frontal [CR] Stat Exams 10/26/17 09:22 Taken Meds: Medications Discontinued Medications Generic Name Dose Route Start Last Admin Trade Name Freq PRN Reason Stop Dose Admin Albuterol/Ipratropium 3 ml 10/26/17 09:21 10/26/17 09:29 Duoneb 3.0-0.5 Mg/3 Ml NEB 10/26/17 09:22 3 ml ONETIME ONE Administration Methylprednisolone Sodium Succinate 125 mg 10/26/17 09:22 10/26/17 09:43 Solu-Medrol IM 10/26/17 09:23 125 mg ONETIME ONE Administration Departure - Departure Time of Disposition: 10:32 Disposition: Home, Self-Care 01 Condition: Good Clinical Impression: Asthma exacerbation Qualifiers: Asthma severity: moderate Asthma persistence: persistent Qualified Code(s): J45.41 - Moderate persistent asthma with (acute) exacerbation - Discharge Information Referrals: PCP,None [Primary Care Provider] - Additional Instructions: The following information is given to patients seen in the emergency department who are being discharged to home. This information is to outline your options for follow-up care. We provide all patients seen in our emergency department with a follow-up referral. The need for follow-up, as well as the timing and circumstances, are variable depending upon the specifics of your emergency department visit. If you don't have a primary care physician on staff, we will provide you with a referral. We always advise you to contact your personal physician following an emergency department visit to inform them of the circumstance of the visit and for follow-up with them and/or the need for any referrals to a consulting specialist. The emergency department will also refer you to a specialist when appropriate. This referral assures that you have the opportunity for follow-up care with a specialist. All of these measure are taken in an effort to provide you with optimal care, which includes your follow-up. Under all circumstances we always encourage you to contact your private physician who remains a resource for coordinating your care. When calling for follow-up care, please make the office aware that this follow-up is from your recent emergency room visit. If for any reason you are refused follow-up, please contact the [facility] emergency department at and asked to speak to the emergency department charge nurse. . - My Orders Last 24 Hours: My Active Orders 10/26/17 09:21 RT Aerosol Therapy [RC] ASDIRECTED 10/26/17 09:22 Chest 1V Frontal [CR] Stat - Assessment/Plan Last 24 Hours: My Active Orders 10/26/17 09:21 RT Aerosol Therapy [RC] ASDIRECTED 10/26/17 09:22 Chest 1V Frontal [CR] Stat
[2017-10-26 10:42] VITALS: BP 115/73
--- NOTE | 2017-10-27 10:02 | CR ---
EXAM DATE: 10/26/17 PATIENT'S AGE: 22 Patient: SAÚL CABRERA Facility: [place], [place] Site . Site : 1995 Study: XRay Chest [id number]/4/2018 9:56:12 AM Ordering Physician: Doctor Braun Final Report: INDICATION: Pain. Shortness of breath. Asthma. TECHNIQUE: PA chest. COMPARISON: Two-view chest August 21, 2017. FINDINGS: Both lungs may be slightly hyperinflated although this could reflect a deep inspiratory effort. Regardless, both lungs are clear. No pneumothorax. Normal heart size. The included skeleton is unremarkable. IMPRESSION: Mild hyperinflation versus a deep inspiratory effort. The examination is otherwise negative. Dictated by Edward Patino MD @ Oct 26 2017 10:00AM (Electronic Signature) Report Signed by Proxy. HAZEL
== END 2017-10-26 10:45 | disposition home or self-care (01) ==
LOC: MW.ED 09:15
DX: J45.41 Moderate persistent asthma with (acute) exacerbation (principal); Z91.14 Patient's other noncompliance with medication regimen; Z91.09 Other allergy status, other than to drugs and biological substances; Z79.899 Other long term (current) drug therapy
CPT/HCPCS: 71045; 94640; 96372; 99283; J2930

== ENCOUNTER 2018-07-01 13:05 | Emergency (ER) | payer OTHER ==
--- NOTE | 2018-07-01 13:30 | EDM.PDOC ---
ED HPI GENERAL MEDICAL PROBLEM - General Chief Complaint: Medication Administration Stated Complaint: NEEDS REFILL ON INHALER Time Seen by Provider: 07/01/18 13:07 Source of Information: Reports: Patient History Limitations: Reports: No Limitations - History of Present Illness INITIAL COMMENTS - FREE TEXT/NARRATIVE: HISTORY AND PHYSICAL: History of present illness: Patient is a 22-year-old male who presents to the emergency room requesting a refill on his Ventolin inhaler. He states he uses his Ventolin inhaler approximately every other day for asthma-like symptoms. States he has not followed up with the primary care provider as he just received insurance and has not established care. He denies any other concerns other than wanting the medication refill today. Review of systems: As per history of present illness and below otherwise all systems reviewed and negative. Past medical history: As per history of present illness and as reviewed below otherwise noncontributory. Surgical history: As per history of present illness and as reviewed below otherwise noncontributory. Social history: See social history for further information Family history: As per history of present illness and as reviewed below otherwise noncontributory. Physical exam: General: Well developed and well nourished 22-year-old male. Alert and oriented. Nontoxic appearing and in no acute distress. HEENT: Atraumatic, normocephalic, pupils equal and reactive bilaterally, negative for conjunctival pallor or scleral icterus, mucous membranes moist, TMs normal bilaterally, throat clear, neck supple, nontender, trachea midline. No drooling or trismus noted. No meningeal signs. No hot potato voice noted. Lungs: Clear to auscultation, breath sounds equal bilaterally, chest nontender. Heart: S1S2, regular rate and rhythm without overt murmur Abdomen: Soft, nondistended, nontender. Negative for masses. Genitourinary: Deferred. Rectal: Deferred. Skin: Intact, warm, dry. No lesions or rashes noted. Extremities: Atraumatic, moves all per self without difficulty or deficits Neurovascular unremarkable. Neuro: Awake, alert, oriented. Cranial nerves II through XII unremarkable. Cerebellum unremarkable. Motor and sensory unremarkable throughout. Exam nonfocal. Notes: Patient declines the need for any diagnostic testing today as he only wants his inhaler refilled. We discussed the importance of establishing care with a primary care provider for further evaluation and medication management. Supportive care measures were reviewed and discussed. Voices understanding and is agreeable to plan of care. Denies any further questions or concerns at this time. Diagnostics: Declined Therapeutics: Declines Prescription: Ventolin Inhaler #1 Impression: Encounter for medication refill Plan: 1. Use your inhaler as needed and as directed 2. As we discussed please establish care with a primary care provider for further medication refills. 3. Return to the ED as needed and as discussed. Definitive disposition and diagnosis as appropriate pending reevaluation and review of above. - Related Data Allergies Allergy/AdvReac Type Severity Reaction Status Date / Time cat dander Allergy Hives Verified 07/01/18 13:22 dog dander Allergy Hives Verified 07/01/18 13:22 Home Meds: Home Meds Albuterol [Ventolin HFA] 2 puff INH Q4H PRN 07/01/18 [History] Albuterol [Ventolin HFA] 2 puff INH Q4H PRN #1 inhaler 07/01/18 [Rx] Past Medical History HEENT History: Reports: None Cardiovascular History: Reports: None Respiratory History: Reports: Asthma Other Respiratory History: hx of collapsed lung- right Gastrointestinal History: Reports: None Genitourinary History: Reports: None Musculoskeletal History: Reports: None Neurological History: Reports: None Psychiatric History: Reports: ADHD Endocrine/Metabolic History: Reports: None Hematologic History: Reports: None Immunologic History: Reports: None Oncologic (Cancer) History: Reports: None Dermatologic History: Reports: None - Infectious Disease History Infectious Disease History: Reports: Chicken Pox - Past Surgical History Head Surgeries/Procedures: Reports: None HEENT Surgical History: Reports: None GI Surgical History: Reports: None Male Surgical History: Reports: None Social & Family History - Family History Family Medical History: Noncontributory - Tobacco Use Smoking Status *Q: Never Smoker - Caffeine Use Caffeine Use: Reports: None - Recreational Drug Use Recreational Drug Use: No ED ROS GENERAL - Review of Systems Review Of Systems: ROS reveals no pertinent complaints other than HPI. ED EXAM, GENERAL - Physical Exam Exam: See Below (See dictation) Course - Vital Signs Last Recorded V/S: Last Vital Signs Temp 97.5 F 07/01/18 13:20 Pulse 100 07/01/18 13:20 Resp 18 07/01/18 13:20 BP 104/69 07/01/18 13:20 Pulse Ox 98 07/01/18 13:20 Departure - Departure Time of Disposition: 13:30 Disposition: Home, Self-Care 01 Clinical Impression: Medication refill - Discharge Information Prescriptions: Albuterol [Ventolin HFA] 2 puff INH Q4H PRN #1 inhaler PRN Reason: Dyspnea Instructions: Medicine Refill at the Emergency Department Referrals: PCP,None [Primary Care Provider] - Forms: ED Department Discharge Additional Instructions: The following information is given to patients seen in the emergency department who are being discharged to home. This information is to outline your options for follow-up care. We provide all patients seen in our emergency department with a follow-up referral. The need for follow-up, as well as the timing and circumstances, are variable depending upon the specifics of your emergency department visit. If you don't have a primary care physician on staff, we will provide you with a referral. We always advise you to contact your personal physician following an emergency department visit to inform them of the circumstance of the visit and for follow-up with them and/or the need for any referrals to a consulting specialist. The emergency department will also refer you to a specialist when appropriate. This referral assures that you have the opportunity for follow-up care with a specialist. All of these measure are taken in an effort to provide you with optimal care, which includes your follow-up. Under all circumstances we always encourage you to contact your private physician who remains a resource for coordinating your care. When calling for follow-up care, please make the office aware that this follow-up is from your recent emergency room visit. If for any reason you are refused follow-up, please contact the [facility] Emergency Department at and asked to speak to the emergency department charge nurse. [facility] [address], [place] [address] [facility] [address] [place] [id number] 1. Use your inhaler as needed and as directed 2. As we discussed please establish care with a primary care provider for further medication refills. Both clinic phone numbers are listed on your packet. 3. Return to the ED as needed and as discussed.
[2018-07-01 13:55] VITALS: BP 105/66
== END 2018-07-01 13:55 | disposition home or self-care (01) ==
LOC: MW.ED 13:05
DX: Z76.0 Encounter for issue of repeat prescription (principal); Z91.048 Other nonmedicinal substance allergy status
CPT/HCPCS: 99281; 99282

== ENCOUNTER 2018-08-05 07:35 | Emergency (ER) | payer OTHER ==
[2018-08-05] MEDS ORDERED: Sodium Chloride 0.9% 1,000 ML IV ONE (07:44)
--- NOTE | 2018-08-05 07:45 | EDM.PDOC ---
ED HPI GENERAL MEDICAL PROBLEM - General Chief Complaint: Gastrointestinal Problem Stated Complaint: AMB Time Seen by Provider: 08/05/18 07:44 Source of Information: Reports: Patient - History of Present Illness INITIAL COMMENTS - FREE TEXT/NARRATIVE: HISTORY AND PHYSICAL: History of present illness: [Patient arrives via EMS with complaint of nausea vomiting general malaise He is drinking a pint of vodka last night as well as slightly hypoglycemic on arrival with a glucose of 50 alert interactive cooperative rest problems appropriately Shortly after arrival on recheck glucose was down to 30 he did receive an amp of D50 Blood pressure was low on arrival 100 over 40s fluid bolus was initiated despite fluid bolus blood pressure continued lower to 80/20 and became hypoxic for a short period at 85% DuoNeb and Solu-Medrol provided Patient is afebrile not in distress although] Review of systems: As per history of present illness and below otherwise all systems reviewed and negative. Past medical history: As per history of present illness and as reviewed below otherwise noncontributory. Surgical history: As per history of present illness and as reviewed below otherwise noncontributory. Social history: No reported history of drug or alcohol abuse. Family history: As per history of present illness and as reviewed below otherwise noncontributory. Physical exam: HEENT: Atraumatic, normocephalic, pupils reactive, negative for conjunctival pallor or scleral icterus, mucous membranes moist, throat clear, neck supple, nontender, trachea midline. Lungs: Clear to auscultation, breath sounds equal bilaterally, chest nontender. Heart: S1S2, regular, negative for clicks, rubs, or JVD. Abdomen: Soft, nondistended, nontender. Negative for masses or hepatosplenomegaly. Negative for costovertebral tenderness. Pelvis: Stable nontender. Genitourinary: Deferred. Rectal: Deferred. Extremities: Atraumatic, negative for cords or calf pain. Neurovascular unremarkable. Neuro: Awake, alert, oriented. Cranial nerves II through XII unremarkable. Cerebellum unremarkable. Motor and sensory unremarkable throughout. Exam nonfocal. Diagnostics: [CBC CMP UA troponin lipase EKG Chest 1 view ] Therapeutics: [ normal saline ]Zosyn Vancomycin DuoNeb Solu-Medrol Impression: Hypoxia Hypotension Hypoglycemia [ alcohol use and abuse marijuana use and abuse ] Alcohol intoxication Question urosepsis Definitive disposition and diagnosis as appropriate pending reevaluation and review of above. Generalized Pain Score (Numeric/FACES): 6 - Related Data Allergies Allergy/AdvReac Type Severity Reaction Status Date / Time cat dander Allergy Hives Verified 08/05/18 08:21 dog dander Allergy Hives Verified 08/05/18 08:21 Home Meds: Home Meds Albuterol [Ventolin HFA] 2 puff INH Q4H PRN 07/01/18 [History] Past Medical History HEENT History: Reports: None Cardiovascular History: Reports: None Respiratory History: Reports: Asthma Other Respiratory History: hx of collapsed lung- right Gastrointestinal History: Reports: None Genitourinary History: Reports: None Musculoskeletal History: Reports: None Neurological History: Reports: None Psychiatric History: Reports: ADHD Endocrine/Metabolic History: Reports: None Hematologic History: Reports: None Immunologic History: Reports: None Oncologic (Cancer) History: Reports: None Dermatologic History: Reports: None - Infectious Disease History Infectious Disease History: Reports: Chicken Pox - Past Surgical History Head Surgeries/Procedures: Reports: None HEENT Surgical History: Reports: None GI Surgical History: Reports: None Male Surgical History: Reports: None Social & Family History - Family History Family Medical History: Noncontributory - Caffeine Use Caffeine Use: Reports: None ED ROS GENERAL - Review of Systems Review Of Systems: See Below ED EXAM, GENERAL - Physical Exam Exam: See Below Course - Vital Signs Last Recorded V/S: Last Vital Signs Temp 98.0 F 08/05/18 08:22 Pulse 107 H 08/05/18 09:21 Resp 12 08/05/18 09:21 BP 104/35 L 08/05/18 09:21 Pulse Ox 98 08/05/18 09:21 - Orders/Labs/Meds Orders: Active Orders 24 hr Category Date Time Status EKG Documentation Completion [RC] STAT Care 08/05/18 07:43 Active RT Aerosol Therapy [RC] ASDIRECTED Care 08/05/18 09:31 Active Chest 1V Frontal [CR] Stat Exams 08/05/18 07:43 Taken CULTURE BLOOD [BC] Stat Lab 08/05/18 09:12 Received CULTURE BLOOD [BC] Stat Lab 08/05/18 09:20 Received CULTURE URINE [RM] Stat Lab 08/05/18 08:36 Received Piperacillin/Tazobactam [Piperacil-Tazobact] 3.375 gm Med 08/05/18 09:29 Active Sodium Chloride 0.9% [Normal Saline] 50 ml IV ONETIME Sodium Chloride 0.9% [Normal Saline] 1,000 ml Med 08/05/18 09:00 Active IV STAT Vancomycin [Vancocin] 1 gm Med 08/05/18 09:30 Active Sodium Chloride 0.9% [Normal Saline] 250 ml IV ONETIME Blood Culture x2 Reflex Set [OM.PC] Stat Oth 08/05/18 08:54 Ordered Medication Orders Sodium Chloride (Normal Saline) 1,000 mls @ 150 mls/hr IV STAT DIGNA Last Admin: 08/05/18 09:20 Dose: 150 mls/hr Piperacillin Sod/Tazobactam (Sod 3.375 gm/ Sodium Chloride) 50 mls @ 100 mls/ hr IV ONETIME ONE Stop: 08/05/18 09:58 Last Admin: 08/05/18 09:43 Dose: 100 mls/hr Vancomycin HCl 1 gm/ Sodium (Chloride) 250 mls @ 250 mls/hr IV ONETIME ONE Stop: 08/05/18 10:29 Last Admin: 08/05/18 09:44 Dose: 250 mls/hr Labs: Laboratory Tests 08/05/18 08/05/18 08/05/18 Range/Units 08:12 08:12 08:36 WBC 16.58 H (4.0-11.0) K/uL RBC 5.07 (4.50-5.90) M/uL Hgb 16.0 (13.0-17.0) g/dL Hct 46.6 (38.0-50.0) % MCV 91.9 (80.0-98.0) fL MCH 31.6 (27.0-32.0) pg MCHC 34.3 (31.0-37.0) g/dL RDW Std Deviation 42.7 (28.0-62.0) fl RDW Coeff of David 13 (11.0-15.0) % Plt Count 279 (150-400) K/uL MPV 10.50 (7.40-12.00) fL Add Manual Diff YES Neutrophils % (Manual) 70 (48.0-80.0) % Band Neutrophils % 8 % Lymphocytes % (Manual) 18 (16.0-40.0) % Monocytes % (Manual) 3 (0.0-15.0) % Eosinophils % (Manual) 1 (0.0-7.0) % Nucleated RBC % 0.0 /100WBC Absolute Seg Neuts 11.6 H (1.4-5.7) Band Neutrophils # 1.3 Lymphocytes # (Manual) 3.0 H (0.6-2.4) Monocytes # (Manual) 0.5 (0.0-0.8) Eosinophils # (Manual) 0.2 (0.0-0.7) Nucleated RBCs # 0 K/uL Lactate (0.20-2.00) mmol/L Sodium 145 (136-148) mmol/L Potassium 3.0 L (3.5-5.1) mmol/L Chloride 105 (98-107) mmol/L Carbon Dioxide 19.5 L (21.0-32.0) mmol/L BUN 15 (7.0-18.0) mg/dL Creatinine 1.2 (0.8-1.3) mg/dL Est Cr Clr Drug Dosing 90.09 mL/min Estimated GFR (MDRD) > 60.0 ml/min Glucose 49 L (74-106) mg/dL Calcium 8.7 (8.5-10.1) mg/dL Total Bilirubin 1.2 H (0.2-1.0) mg/dL AST 84 H (15-37) IU/L ALT 92 H (14-63) IU/L Alkaline Phosphatase 84 (46-116) U/L Troponin I < 0.050 (0.000-0.056) ng/mL Total Protein 7.6 (6.4-8.2) g/dL Albumin 4.4 (3.4-5.0) g/dL Globulin 3.2 (2.6-4.0) g/dL Albumin/Globulin Ratio 1.4 (0.9-1.6) Lipase 73 (73-393) U/L Urine Color YELLOW Urine Appearance CLEAR Urine pH 5.5 (5.0-8.0) Ur Specific [place] 1.025 (1.001-1.035) Urine Protein TRACE H (NEGATIVE) mg/dL Urine Glucose (UA) NEGATIVE (NEGATIVE) mg/dL Urine Ketones 15 H (NEGATIVE) mg/dL Urine Occult Blood NEGATIVE (NEGATIVE) Urine Nitrite NEGATIVE (NEGATIVE) Urine Bilirubin NEGATIVE (NEGATIVE) Urine Urobilinogen 0.2 (<2.0) EU/dL Ur Leukocyte Esterase TRACE H (NEGATIVE) Urine RBC 2-4 (0-2/HPF) Urine WBC 10-20 (0-5/HPF) Ur Squamous Epith Cells RARE Urine Bacteria FEW (NEGATIVE) Hyaline Casts 2-4 (0-2/LPF) RBC Casts RARE (NEGATIVE) Urine Mucus MODERATE (NONE-MOD) Urine Opiates Screen (NEGATIVE) Ur Oxycodone Screen (NEGATIVE) Urine Methadone Screen (NEGATIVE) Ur Barbiturates Screen (NEGATIVE) Ur Phencyclidine Scrn (NEGATIVE) Ur Amphetamine Screen (NEGATIVE) U Methamphetamines Scrn (NEGATIVE) U Benzodiazepines Scrn (NEGATIVE) U Cocaine Metab Screen (NEGATIVE) U Marijuana (THC) Screen (NEGATIVE) Ethyl Alcohol 175 mg/dL 08/05/18 08/05/18 Range/Units 08:36 09:13 WBC (4.0-11.0) K/uL RBC (4.50-5.90) M/uL Hgb (13.0-17.0) g/dL Hct (38.0-50.0) % MCV (80.0-98.0) fL MCH (27.0-32.0) pg MCHC (31.0-37.0) g/dL RDW Std Deviation (28.0-62.0) fl RDW Coeff of David (11.0-15.0) % Plt Count (150-400) K/uL MPV (7.40-12.00) fL Add Manual Diff Neutrophils % (Manual) (48.0-80.0) % Band Neutrophils % % Lymphocytes % (Manual) (16.0-40.0) % Monocytes % (Manual) (0.0-15.0) % Eosinophils % (Manual) (0.0-7.0) % Nucleated RBC % /100WBC Absolute Seg Neuts (1.4-5.7) Band Neutrophils # Lymphocytes # (Manual) (0.6-2.4) Monocytes # (Manual) (0.0-0.8) Eosinophils # (Manual) (0.0-0.7) Nucleated RBCs # K/uL Lactate 7.1 H (0.20-2.00) mmol/L Sodium (136-148) mmol/L Potassium (3.5-5.1) mmol/L Chloride (98-107) mmol/L Carbon Dioxide (21.0-32.0) mmol/L BUN (7.0-18.0) mg/dL Creatinine (0.8-1.3) mg/dL Est Cr Clr Drug Dosing mL/min Estimated GFR (MDRD) ml/min Glucose (74-106) mg/dL Calcium (8.5-10.1) mg/dL Total Bilirubin (0.2-1.0) mg/dL AST (15-37) IU/L ALT (14-63) IU/L Alkaline Phosphatase (46-116) U/L Troponin I (0.000-0.056) ng/mL Total Protein (6.4-8.2) g/dL Albumin (3.4-5.0) g/dL Globulin (2.6-4.0) g/dL Albumin/Globulin Ratio (0.9-1.6) Lipase (73-393) U/L Urine Color Urine Appearance Urine pH (5.0-8.0) Ur Specific [place] (1.001-1.035) Urine Protein (NEGATIVE) mg/dL Urine Glucose (UA) (NEGATIVE) mg/dL Urine Ketones (NEGATIVE) mg/dL Urine Occult Blood (NEGATIVE) Urine Nitrite (NEGATIVE) Urine Bilirubin (NEGATIVE) Urine Urobilinogen (<2.0) EU/dL Ur Leukocyte Esterase (NEGATIVE) Urine RBC (0-2/HPF) Urine WBC (0-5/HPF) Ur Squamous Epith Cells Urine Bacteria (NEGATIVE) Hyaline Casts (0-2/LPF) RBC Casts (NEGATIVE) Urine Mucus (NONE-MOD) Urine Opiates Screen NEGATIVE (NEGATIVE) Ur Oxycodone Screen NEGATIVE (NEGATIVE) Urine Methadone Screen NEGATIVE (NEGATIVE) Ur Barbiturates Screen NEGATIVE (NEGATIVE) Ur Phencyclidine Scrn NEGATIVE (NEGATIVE) Ur Amphetamine Screen NEGATIVE (NEGATIVE) U Methamphetamines Scrn NEGATIVE (NEGATIVE) U Benzodiazepines Scrn NEGATIVE (NEGATIVE) U Cocaine Metab Screen NEGATIVE (NEGATIVE) U Marijuana (THC) Screen NEGATIVE (NEGATIVE) Ethyl Alcohol mg/dL Meds: Medications Generic Name Dose Route Start Last Admin Trade Name Freq PRN Reason Stop Dose Admin Sodium Chloride 1,000 mls @ 150 mls/hr 08/05/18 09:00 08/05/18 09:20 Normal Saline IV 150 mls/hr STAT DIGNA Administration Piperacillin Sod/Tazobactam 50 mls @ 100 mls/hr 08/05/18 09:29 08/05/18 09:43 Sod 3.375 gm/ Sodium Chloride IV 08/05/18 09:58 100 mls/hr ONETIME ONE Administration Vancomycin HCl 1 gm/ Sodium 250 mls @ 250 mls/hr 08/05/18 09:30 08/05/18 09: 44 Chloride IV 08/05/18 10:29 250 mls/hr ONETIME ONE Administration Discontinued Medications Generic Name Dose Route Start Last Admin Trade Name Freq PRN Reason Stop Dose Admin Albuterol/Ipratropium 3 ml 08/05/18 09:31 08/05/18 09:38 Duoneb 3.0-0.5 Mg/3 Ml NEB 08/05/18 09:32 3 ml ONETIME ONE Administration Dextrose/Water 50 ml 08/05/18 09:26 08/05/18 09:30 Dextrose 50% In Water IVPUSH 08/05/18 09:27 50 ml ONETIME ONE Administration Dextrose/Water Confirm 08/05/18 09:28 08/05/18 09:30 Dextrose 50% In Water Administered 08/05/18 09:29 Not Given Dose 50 ml .ROUTE .STK-MED ONE Sodium Chloride 1,000 mls @ 999 mls/hr 08/05/18 07:44 08/05/18 08:40 Normal Saline IV 08/05/18 08:44 999 mls/hr STAT ONE Administration Methylprednisolone Sodium Succinate 125 mg 08/05/18 09:31 08/05/18 09:45 Solu-Medrol IVPUSH 08/05/18 09:32 125 mg ONETIME ONE Administration Pantoprazole Sodium 80 mg 08/05/18 08:56 08/05/18 09:17 Protonix Iv IVPUSH 08/05/18 08:57 80 mg .BOLUS ONE Administration Departure - Departure Time of Disposition: 09:45 Disposition: DC/Tfer to Acute Hospital 02 Condition: Serious Clinical Impression: Systemic inflammatory response syndrome - Discharge Information Referrals: PCP,None [Primary Care Provider] - Forms: ED Department Discharge - My Orders Last 24 Hours: My Active Orders 08/05/18 07:43 EKG Documentation Completion [RC] STAT Chest 1V Frontal [CR] Stat 08/05/18 08:36 CULTURE URINE [RM] Stat 08/05/18 08:54 Blood Culture x2 Reflex Set [OM.PC] Stat 08/05/18 09:00 Sodium Chloride 0.9% [Normal Saline] 1,000 ml IV STAT 08/05/18 09:12 CULTURE BLOOD [BC] Stat 08/05/18 09:20 CULTURE BLOOD [BC] Stat 08/05/18 09:29 Piperacillin/Tazobactam [Piperacil-Tazobact] 3.375 gm Sodium Chloride 0.9% [ Normal Saline] 50 ml IV ONETIME 08/05/18 09:30 Vancomycin [Vancocin] 1 gm Sodium Chloride 0.9% [Normal Saline] 250 ml IV ONETIME 08/05/18 09:31 RT Aerosol Therapy [RC] ASDIRECTED - Assessment/Plan Last 24 Hours: My Active Orders 08/05/18 07:43 EKG Documentation Completion [RC] STAT Chest 1V Frontal [CR] Stat 08/05/18 08:36 CULTURE URINE [RM] Stat 08/05/18 08:54 Blood Culture x2 Reflex Set [OM.PC] Stat 08/05/18 09:00 Sodium Chloride 0.9% [Normal Saline] 1,000 ml IV STAT 08/05/18 09:12 CULTURE BLOOD [BC] Stat 08/05/18 09:20 CULTURE BLOOD [BC] Stat 08/05/18 09:29 Piperacillin/Tazobactam [Piperacil-Tazobact] 3.375 gm Sodium Chloride 0.9% [ Normal Saline] 50 ml IV ONETIME 08/05/18 09:30 Vancomycin [Vancocin] 1 gm Sodium Chloride 0.9% [Normal Saline] 250 ml IV ONETIME 08/05/18 09:31 RT Aerosol Therapy [RC] ASDIRECTED
[2018-08-05 08:54] LABS: CHLORIDE,CL 105 mmol/L (98-107); SODIUM,NA 145 mmol/L (136-148)
[2018-08-05] MEDS ORDERED: Pantoprazole 40 MG Vial IVPUSH ONE (08:56)
[2018-08-05] MEDS ORDERED: Sodium Chloride 0.9% 1,000 ML IV SCH (09:00)
[2018-08-05] MEDS ORDERED: 50% Dextrose in Water 50 ML Syringe IVPUSH ONE (09:26)
[2018-08-05] MEDS ORDERED: 50% Dextrose in Water 50 ML Syringe ONE (09:28)
[2018-08-05] MEDS ORDERED: Piperacillin/Tazobactam 3.375 GM in Sodium Chloride 0.9% 50 ML IV ONE (09:29)
[2018-08-05] MEDS ORDERED: Albuterol/Ipratropium 3.0-0.5 MG/3 ML Neb Soln NEB ONE (09:31)
[2018-08-05] MEDS ORDERED: methylPREDNISolone Sodium Succinate 125 MG/2 ML SDV IVPUSH ONE (09:31)
--- NOTE | 2018-08-05 09:53 | CR ---
INDICATION: Cough TECHNIQUE: Single view chest. FINDINGS: The lungs are clear. The heart, mediastinum and pulmonary vessels are of normal size. There is no evidence of pleural disease. IMPRESSION: Negative chest. Dictated by Grace Rodrigues MD @ Aug 05 2018 9:52AM Signed by Dr. Grace Rodrigues @ Aug 05 2018 9:52AM
[2018-08-05] MEDS ORDERED: LORazepam 2 MG/ML SDV IVPUSH ONE (10:02)
[2018-08-05] MEDS ORDERED: diphenhydrAMINE 50 MG/ML SDV IVPUSH ONE (10:03)
[2018-08-05] MEDS ORDERED: Water For Injection, Sterile 20 ML SDV INJECT ONE (10:11)
[2018-08-05] MEDS ORDERED: Ziprasidone Mesylate 20 MG Vial IM ONE (10:11)
[2018-08-05 10:34] VITALS: BP 118/40
== END 2018-08-05 10:28 ==
LOC: MW.ED 07:35
DX: E16.2 Hypoglycemia, unspecified (principal); R09.02 Hypoxemia; R65.10 Systemic inflammatory response syndrome (SIRS) of non-infectious origin without acute organ dysfunction; I95.9 Hypotension, unspecified; F10.10 Alcohol abuse, uncomplicated; F12.10 Cannabis abuse, uncomplicated; Z91.048 Other nonmedicinal substance allergy status
CPT/HCPCS: 36415; 71045; 80053; 80305; 81001; 82962; 83605; 83690; 84484; 85025; 87040; 87086; 93005; 94640; 96361; 96365; 96367; 96372; 96375; 99285; C9113; G0480; J1200; J2060; J2543; J2930; J3370; J3486; J7040; J7050; J7060; J7620-GY

== ENCOUNTER 2019-05-28 10:43 | Emergency (ER) | payer SELFPAY ==
[2019-05-28] MEDS ORDERED: Albuterol/Ipratropium 3.0-0.5 MG/3 ML Neb Soln NEB ONE (10:44)
[2019-05-28] MEDS ORDERED: predniSONE 20 MG Tab PO ONE (10:49)
--- NOTE | 2019-05-28 10:55 | EDM.PDOC ---
ED HPI GENERAL MEDICAL PROBLEM - General Chief Complaint: Respiratory Problem Stated Complaint: ASTHMA Time Seen by Provider: 05/28/19 10:45 Source of Information: Reports: Patient History Limitations: Reports: No Limitations - History of Present Illness INITIAL COMMENTS - FREE TEXT/NARRATIVE: HISTORY OF PRESENT ILLNESS: Patient is a 23-year-old male with history of asthma who states the past 3 days he has been out of his Advair and rescue inhaler and has had worsening shortness of breath and sensation of tightness of breathing. Denies any chest pain. No abdominal pain vomiting or diarrhea. No fevers or chills. Patient does report pain to the upper left gingival area where he feels as though his wisdom teeth are coming through. Has not seen a dentist for this and pain has been ongoing for 2 days. Denies any difficulty swallowing. No rash or neck stiffness. Has otherwise been in normal state of health. No prior intubations. Has been admitted in the past for asthma. No recent p.o. steroids. REVIEW OF SYSTEMS: Other than the symptoms associated with the present events, the following is reported with regard to recent health: General: (-) fever. HENT: (-) congestion. (+) gingival pain Respiratory: (+) shortness of breath which feels similar to prior asthma exacerbations Cardiovascular: (-) chest pain. GI: (-) abdominal pain. : (-) urinary complaints. Musculoskeletal: (-) other aches or pains. Endocrine: (-) generalized weakness. Neurological: (-) localized weakness. Skin: (-) rash PAST MEDICAL HISTORY: reviewed as per nursing notes SOCIAL HISTORY: reviewed as per nursing notes, MEDICATIONS: Per nurse's note ALLERGIES: Per nurse's note, reviewed by me PHYSICAL EXAMINATION: GENERALIZED APPEARANCE: well developed, well nourished in mild respiratory distress VITAL SIGNS: Per nurse's note, reviewed by me SKIN: Warm, dry; (-) cyanosis; (-) rash. HEAD: (-) scalp swelling, (-) tenderness. EYES: (-) conjunctival pallor, (-) scleral icterus. ENMT: (-) stridor; mucous membranes moist. left upper posterior gingival tenderness and erythema without fluctuance or discharge near site where 3rd molar should be present. uvula midline. no pharyngeal erythema. no phonation changes or trismus NECK: (-) tenderness, (-) stiffness, CHEST AND RESPIRATORY: diminished air movement bilaterally. (-) rales, (-) rhonchi, (-) wheezes; no retractions. sitting in chair comfortably HEART AND CARDIOVASCULAR: (-) irregularity; (-) murmur, (-) gallop. ABDOMEN AND GI: Soft; (-) tenderness, (-) guarding, (-) rebound, (-) palpable masses, EXTREMITIES: (-) deformity, (-) edema. NEURO AND PSYCH: Alert. Cranial nerves grossly intact; strength symmetric. gait steady EMERGENCY DEPARTMENT COURSE AND TREATMENT: Patient's condition remained stable during Emergency Department evaluation. Based on my history, physical exam, and diagnostic evaluation, the patient has symptoms consistent with an acute asthma exacerbation. On re-exam there was a normal respiratory pattern and lung rocha were clear on repeat auscultation. The patient appeared to be in no distress, appeared well-hydrated and was ambulating in the ED without difficulty. Subjectively, the patient feels better and is requesting discharge. Discharge precautions were given with instructions to return if difficulty breathing, not tolerating oral food or fluids, any respiratory distress, or new symptoms. I encouraged follow-up with the primary care physician or return here for repeat exam in 24-48 hours. Patient presents with acute gingival pain.. There is no obvious dental abscess on exam. There is no trismus and the patient is tolerating PO fluids. There is no obvious facial cellulitis. A referral was given to a dental clinic/dentist and the patient understands need to follow up in 1-2 days. Instructions were given to return for worsening pain, facial swelling, SOB, or not tolerating fluids. They were discharged with antibiotics. PLAN AND FOLLOW-UP: Patient received written and verbal instructions regarding this condition. Return to ED immediately with any new or worsening symptoms. Follow up to be arranged by patient with pcp and dentist in 1-2 days for further evaluation. Given discharge precautions. patient expressed verbal understanding. - Related Data Allergies Allergy/AdvReac Type Severity Reaction Status Date / Time cat dander Allergy Hives Verified 08/05/18 08:21 dog dander Allergy Hives Verified 08/05/18 08:21 Home Meds: Home Meds Albuterol [Ventolin HFA] 2 puff INH Q4H PRN #1 inhaler 05/28/19 [Rx] Fluticasone/Salmeterol [Advair 100-50] 1 puff INH BID #1 diskus 05/28/19 [Rx] Penicillin V Potassium 500 mg PO Q8HR 7 Days #21 tab 05/28/19 [Rx] predniSONE [Prednisone] 50 mg PO DAILY #5 tablet 05/28/19 [Rx] Past Medical History HEENT History: Reports: None Cardiovascular History: Reports: None Respiratory History: Reports: Asthma Other Respiratory History: hx of collapsed lung- right Gastrointestinal History: Reports: None Genitourinary History: Reports: None Musculoskeletal History: Reports: None Neurological History: Reports: None Psychiatric History: Reports: ADHD Endocrine/Metabolic History: Reports: None Hematologic History: Reports: None Immunologic History: Reports: None Oncologic (Cancer) History: Reports: None Dermatologic History: Reports: None - Infectious Disease History Infectious Disease History: Reports: Chicken Pox - Past Surgical History Head Surgeries/Procedures: Reports: None HEENT Surgical History: Reports: None GI Surgical History: Reports: None Male Surgical History: Reports: None Social & Family History - Family History Family Medical History: Noncontributory - Caffeine Use Caffeine Use: Reports: None ED ROS GENERAL - Review of Systems Review Of Systems: See Below (see dictation) ED EXAM, GENERAL - Physical Exam Exam: See Below (see dictation) Course - Vital Signs Last Recorded V/S: Last Vital Signs Temp 97.7 F 05/28/19 10:50 Pulse 100 05/28/19 11:01 Resp 18 05/28/19 11:01 BP 127/83 05/28/19 10:50 Pulse Ox 97 05/28/19 11:01 - Orders/Labs/Meds Orders: Active Orders 24 hr Category Date Time Status RT Aerosol Therapy [RC] ASDIRECTED Care 05/28/19 10:44 Active Meds: Medications Discontinued Medications Generic Name Dose Route Start Last Admin Trade Name Freq PRN Reason Stop Dose Admin Albuterol/Ipratropium 3 ml 05/28/19 10:44 05/28/19 10:54 Duoneb 3.0-0.5 Mg/3 Ml NEB 05/28/19 10:45 3 ml ONETIME ONE Administration Prednisone 60 mg 05/28/19 10:49 Prednisone PO 05/28/19 10:50 ONETIME ONE Departure - Departure Time of Disposition: 10:55 Disposition: Home, Self-Care 01 Condition: Good Clinical Impression: Acute asthma, Pain of gingiva - Discharge Information *PRESCRIPTION DRUG MONITORING PROGRAM REVIEWED*: Not Applicable *COPY OF PRESCRIPTION DRUG MONITORING REPORT IN PATIENT TALI: Not Applicable Prescriptions: Albuterol [Ventolin HFA] 2 puff INH Q4H PRN #1 inhaler PRN Reason: wheezing Fluticasone/Salmeterol [Advair 100-50] 1 puff INH BID #1 diskus predniSONE [Prednisone] 50 mg PO DAILY #5 tablet Instructions: Asthma, Adult, Impacted Molar, Gingivitis Referrals: Jennifer Jackson [Ordering Only Provider] - 2 Days Forms: ED Department Discharge Additional Instructions: The following information is given to patients seen in the emergency department who are being discharged to home. This information is to outline your options for follow-up care. We provide all patients seen in our emergency department with a follow-up referral. The need for follow-up, as well as the timing and circumstances, are variable depending upon the specifics of your emergency department visit. If you don't have a primary care physician on staff, we will provide you with a referral. We always advise you to contact your personal physician following an emergency department visit to inform them of the circumstance of the visit and for follow-up with them and/or the need for any referrals to a consulting specialist. The emergency department will also refer you to a specialist when appropriate. This referral assures that you have the opportunity for follow-up care with a specialist. All of these measure are taken in an effort to provide you with optimal care, which includes your follow-up. Under all circumstances we always encourage you to contact your private physician who remains a resource for coordinating your care. When calling for follow-up care, please make the office aware that this follow-up is from your recent emergency room visit. If for any reason you are refused follow-up, please contact the [facility] Emergency Department at and asked to speak to the emergency department charge nurse. Sepsis Event Note - Focused Exam Vital Signs: Vital Signs Temp Pulse Resp BP Pulse Ox 05/28/19 11:01 100 18 97 05/28/19 10:50 97.7 F 98 18 127/83 99 Date Exam was Performed: 05/28/19 Time Exam was Performed: 11:02 - My Orders Last 24 Hours: My Active Orders 05/28/19 10:44 RT Aerosol Therapy [RC] ASDIRECTED - Assessment/Plan Last 24 Hours: My Active Orders 05/28/19 10:44 RT Aerosol Therapy [RC] ASDIRECTED
[2019-05-28 11:17] VITALS: BP 122/75; PULSE 105
== END 2019-05-28 11:15 | disposition home or self-care (01) ==
LOC: MW.ED 10:43
DX: J45.909 Unspecified asthma, uncomplicated (principal); K08.89 Other specified disorders of teeth and supporting structures; Z91.048 Other nonmedicinal substance allergy status
CPT/HCPCS: 94640; 99284; A9270; 99283; J7620-GY

== ENCOUNTER 2019-05-30 11:30 | Emergency (ER) | payer SELFPAY ==
[2019-05-30] MEDS ORDERED: Albuterol/Ipratropium 3.0-0.5 MG/3 ML Neb Soln NEB ONE (11:34)
[2019-05-30] MEDS ORDERED: Albuterol/Ipratropium 3.0-0.5 MG/3 ML Neb Soln ONE (11:34)
[2019-05-30] MEDS ORDERED: Magnesium Sulfate/Water 2 GM in Premix Bag 1 BAG IV ONE (11:39)
[2019-05-30] MEDS ORDERED: methylPREDNISolone Sodium Succinate 125 MG/2 ML SDV IV ONE (11:39)
[2019-05-30 11:41] VITALS: BP 133/84; PULSE 83
[2019-05-30] MEDS ORDERED: Sodium Chloride 0.9% 1,000 ML IV SCH (11:45)
--- NOTE | 2019-05-30 11:49 | EDM.PDOC ---
ED HPI GENERAL MEDICAL PROBLEM - General Chief Complaint: Respiratory Problem Stated Complaint: ASTHMA Time Seen by Provider: 05/30/19 11:36 Source of Information: Reports: Patient History Limitations: Reports: No Limitations - History of Present Illness INITIAL COMMENTS - FREE TEXT/NARRATIVE: This 23 year old male is admitted to the ED with a chief complaint of having a asthma attack. He states that he ran out of his asthma medications one week ago and cannot afford to pay for it. Onset: Gradual Improves with: Reports: None Worsens with: Reports: Breathing (with wheezing) lungs Pain Score (Numeric/FACES): 5 - Related Data Allergies Allergy/AdvReac Type Severity Reaction Status Date / Time cat dander Allergy Hives Verified 05/30/19 11:41 dog dander Allergy Hives Verified 05/30/19 11:41 Home Meds: Home Meds Albuterol [Ventolin HFA] 2 puff INH Q4H PRN #1 inhaler 05/28/19 [Rx] Fluticasone/Salmeterol [Advair 100-50] 1 puff INH BID #1 diskus 05/28/19 [Rx] Penicillin V Potassium 500 mg PO Q8HR 7 Days #21 tab 05/28/19 [Rx] predniSONE [Prednisone] 50 mg PO DAILY #5 tablet 05/28/19 [Rx] Past Medical History HEENT History: Reports: None Cardiovascular History: Reports: None Respiratory History: Reports: Asthma Other Respiratory History: hx of collapsed lung- right Gastrointestinal History: Reports: None Genitourinary History: Reports: None Musculoskeletal History: Reports: None Neurological History: Reports: None Psychiatric History: Reports: ADHD Endocrine/Metabolic History: Reports: None Hematologic History: Reports: None Immunologic History: Reports: None Oncologic (Cancer) History: Reports: None Dermatologic History: Reports: None - Infectious Disease History Infectious Disease History: Reports: None - Past Surgical History Head Surgeries/Procedures: Reports: None HEENT Surgical History: Reports: None Cardiovascular Surgical History: Reports: None Respiratory Surgical History: Reports: None GI Surgical History: Reports: None Male Surgical History: Reports: None Endocrine Surgical History: Reports: None Neurological Surgical History: Reports: None Musculoskeletal Surgical History: Reports: None Oncologic Surgical History: Reports: None Dermatological Surgical History: Reports: None Social & Family History - Family History Family Medical History: Noncontributory - Tobacco Use Smoking Status *Q: Never Smoker Second Hand Smoke Exposure: No - Caffeine Use Caffeine Use: Reports: Coffee, Soda - Recreational Drug Use Recreational Drug Use: No ED ROS GENERAL - Review of Systems Review Of Systems: See Below Constitutional: Reports: No Symptoms HEENT: Reports: No Symptoms Respiratory: Reports: Wheezing, Cough Cardiovascular: Reports: No Symptoms Endocrine: Reports: No Symptoms GI/Abdominal: Reports: No Symptoms : Reports: No Symptoms Musculoskeletal: Reports: No Symptoms Skin: Reports: No Symptoms Neurological: Reports: No Symptoms ED EXAM, GENERAL - Physical Exam Exam: See Below Exam Limited By: No Limitations General Appearance: Alert, WD/WN, Mild Distress (to moderate respiratory distress) Eye Exam: Bilateral Eye: Normal Inspection, PERRL Ears: Normal External Exam, Normal Canal, Hearing Grossly Normal, Normal TMs Ear Exam: Bilateral Ear: Auricle Normal, Canal Normal, TM normal Nose: Normal Inspection, Normal Mucosa, No Blood Throat/Mouth: Normal Inspection, Normal Lips, Normal Teeth, Normal Gums, Normal Oropharynx, Normal Voice, No Airway Compromise Head: Atraumatic, Normocephalic Neck: Normal Inspection, Supple, Non-Tender, Full Range of Motion Respiratory/Chest: No Accessory Muscle Use, Wheezing (in the apex of both lobes. ), Prolonged Expiration. No: Decreased Breath Sounds, Crackles, Rales, Rhonchi Cardiovascular: Normal Peripheral Pulses, Regular Rate, Rhythm, No Edema, No Gallop, No JVD, No Murmur, No Rub Peripheral Pulses: 4+: Carotid (L), Carotid (R), Radial (L), Radial (R), Dorsalis Pedis (L), Dorsalis Pedis (R) GI/Abdominal: Normal Bowel Sounds, Soft, Non-Tender, No Organomegaly, No Distention, No Abnormal Bruit, No Mass (Male) Exam: Deferred Rectal (Males) Exam: Deferred Back Exam: Normal Inspection, Full Range of Motion, NT Extremities: Normal Inspection, Normal Range of Motion, Non-Tender, Normal Capillary Refill, No Pedal Edema Neurological: Alert, Oriented, CN II-XII Intact Lymphatic: No Adenopathy Course - Vital Signs Text/Narrative:: The patient was much improved with his breathing treatment. He eloped and could not be officially discharged. Last Recorded V/S: Last Vital Signs Temp 95.9 F 05/30/19 11:38 Pulse 83 05/30/19 11:38 Resp 18 05/30/19 11:38 BP 133/84 05/30/19 11:38 Pulse Ox 100 05/30/19 11:38 - Orders/Labs/Meds Orders: Active Orders 24 hr Category Date Time Status CBC WITH AUTO DIFF [HEME] Stat Lab 05/30/19 11:42 Ordered MAGNESIUM [CHEM] Stat Lab 05/30/19 11:42 Ordered Sodium Chloride 0.9% [Normal Saline] 1,000 ml Med 05/30/19 11:45 Active IV ASDIRECTED Medication Orders Sodium Chloride (Normal Saline) 1,000 mls @ 1,000 mls/hr IV ASDIRECTED DIGNA Meds: Medications Generic Name Dose Route Start Last Admin Trade Name Freq PRN Reason Stop Dose Admin Sodium Chloride 1,000 mls @ 1,000 mls/hr 05/30/19 11:45 Normal Saline IV ASDIRECTED DIGNA Discontinued Medications Generic Name Dose Route Start Last Admin Trade Name Freq PRN Reason Stop Dose Admin Albuterol/Ipratropium Confirm 05/30/19 11:34 Duoneb 3.0-0.5 Mg/3 Ml Administered 05/30/19 11:35 Dose 3 ml .ROUTE .STK-MED ONE Magnesium Sulfate 2 gm/ Premix 50 mls @ 50 mls/hr 05/30/19 11:39 IV 05/30/19 12:38 ONETIME ONE Methylprednisolone Sodium Succinate 125 mg 05/30/19 11:39 Solu-Medrol IV 05/30/19 11:40 ONETIME ONE Departure - Departure Time of Disposition: 12:40 Disposition: Eloped 07 Condition: Fair Clinical Impression: Acute asthma - Discharge Information *PRESCRIPTION DRUG MONITORING PROGRAM REVIEWED*: Yes *COPY OF PRESCRIPTION DRUG MONITORING REPORT IN PATIENT TALI: Yes Referrals: PCP,None [Primary Care Provider] - Forms: ED Department Discharge Additional Instructions: Unable to give instructions because the patient eloped. Sepsis Event Note - Evaluation Sepsis Screening Result: No Definite Risk - Focused Exam Vital Signs: Vital Signs Temp Pulse Resp BP Pulse Ox 05/30/19 11:38 95.9 F 83 18 133/84 100 Date Exam was Performed: 05/30/19 Time Exam was Performed: 12:49 - My Orders Last 24 Hours: My Active Orders 05/30/19 11:42 CBC WITH AUTO DIFF [HEME] Stat MAGNESIUM [CHEM] Stat 05/30/19 11:45 Sodium Chloride 0.9% [Normal Saline] 1,000 ml IV ASDIRECTED - Assessment/Plan Last 24 Hours: My Active Orders 05/30/19 11:42 CBC WITH AUTO DIFF [HEME] Stat MAGNESIUM [CHEM] Stat 05/30/19 11:45 Sodium Chloride 0.9% [Normal Saline] 1,000 ml IV ASDIRECTED
--- NOTE | 2019-05-30 12:12 | CR ---
Chest: Frontal view of the chest was obtained. Comparison: Prior chest x-ray of 08/05/18. Heart size and mediastinum are normal. Lungs are clear. Bony structures appear within normal limits. Impression: 1. Nothing acute is seen on frontal chest x-ray. Diagnostic code #1 This report was dictated in Mountain Standard Time
== END 2019-05-30 12:50 | disposition left against medical advice (07) ==
LOC: MW.ED 11:30
DX: J45.901 Unspecified asthma with (acute) exacerbation (principal); Z91.048 Other nonmedicinal substance allergy status
CPT/HCPCS: 71045; 71045-26; 99283; 99285-25; J7620-GY

== ENCOUNTER 2019-08-30 01:10 | Emergency (ER) | payer MEDICAID ==
[2019-08-30 01:20] VITALS: BP 137/84; PULSE 116
[2019-08-30] MEDS ORDERED: Albuterol/Ipratropium 3.0-0.5 MG/3 ML Neb Soln NEB ONE (01:23)
[2019-08-30] MEDS ORDERED: predniSONE 20 MG Tab PO ONE (01:23)
--- NOTE | 2019-08-30 01:23 | EDM.PDOC ---
ED HPI GENERAL MEDICAL PROBLEM - General Chief Complaint: Respiratory Problem Stated Complaint: ASTHMA Time Seen by Provider: 08/30/19 01:12 Source of Information: Reports: Patient History Limitations: Reports: No Limitations - History of Present Illness INITIAL COMMENTS - FREE TEXT/NARRATIVE: Patient is a 23-year-old male who is complaining of being short of breath for last several days but this is much worse since upon awakening a few hours prior to arrival. Patient feels very tight and wheezing and having dyspnea with exertion. He is currently out of his albuterol last 5 days. Not have a nebulizer machine at home. Denies having any cough or fever or chills. He has not been nauseous or vomiting. He has had no diarrhea or bloody or tarry stools. Swelling to his ankles or calfs. Smoking cigarettes that he states he is trying to cut down. He is refusing an IV at this time I rather have oral steroids and DuoNeb treatment without magnesium IV. Duration: Day(s): (Two) Quality: Reports: Same as Previous Episode Severity: Moderate Improves with: Reports: None Worsens with: Reports: Breathing, Movement Associated Symptoms: Reports: No Other Symptoms - Related Data Allergies Allergy/AdvReac Type Severity Reaction Status Date / Time cat dander Allergy Hives Verified 08/30/19 01:58 dog dander Allergy Hives Verified 08/30/19 01:58 Home Meds: Home Meds Albuterol [Ventolin HFA] 2 puff INH Q4H PRN #1 inhaler 05/28/19 [Rx] Fluticasone/Salmeterol [Advair 100-50] 1 puff INH BID #1 diskus 05/28/19 [Rx] Albuterol [Ventolin HFA] 2 puff INH Q6H PRN #1 puff 08/30/19 [Rx] predniSONE [Prednisone] 20 mg PO DAILY #5 tablet 08/30/19 [Rx] Past Medical History HEENT History: Reports: None Cardiovascular History: Reports: None Respiratory History: Reports: Asthma Other Respiratory History: hx of collapsed lung- right Gastrointestinal History: Reports: None Genitourinary History: Reports: None Musculoskeletal History: Reports: None Neurological History: Reports: None Psychiatric History: Reports: ADHD Endocrine/Metabolic History: Reports: None Hematologic History: Reports: None Immunologic History: Reports: None Oncologic (Cancer) History: Reports: None Dermatologic History: Reports: None - Infectious Disease History Infectious Disease History: Reports: None - Past Surgical History Head Surgeries/Procedures: Reports: None HEENT Surgical History: Reports: None Cardiovascular Surgical History: Reports: None Respiratory Surgical History: Reports: None GI Surgical History: Reports: None Male Surgical History: Reports: None Endocrine Surgical History: Reports: None Neurological Surgical History: Reports: None Musculoskeletal Surgical History: Reports: None Oncologic Surgical History: Reports: None Dermatological Surgical History: Reports: None Social & Family History - Family History Family Medical History: Noncontributory - Caffeine Use Caffeine Use: Reports: Coffee, Soda ED ROS GENERAL - Review of Systems Review Of Systems: Comprehensive ROS is negative, except as noted in HPI. ED EXAM, GENERAL - Physical Exam Exam: See Below Exam Limited By: No Limitations General Appearance: Alert, Mild Distress Head: Normocephalic Neck: Normal Inspection, Supple Respiratory/Chest: Respiratory Distress, Decreased Breath Sounds, Wheezing, Prolonged Expiration. No: Accessory Muscle Use, Retractions Cardiovascular: Regular Rate, Rhythm GI/Abdominal: Normal Bowel Sounds, Soft, Non-Tender Back Exam: Normal Inspection Extremities: Normal Inspection, No Pedal Edema Neurological: Alert, Oriented Psychiatric: Normal Affect Skin Exam: Warm, Dry Course - Vital Signs Text/Narrative:: Patient is feeling much better after 1 DuoNeb treatment and prednisone p.o. He does not feel he needs another treatment. I did offer him albuterol inhaler to go which he is declined and feels that he can wait till morning to fill a prescription at the local pharmacy. He has agreed to quit smoking cigarettes. He will return to ER if worse. Last Recorded V/S: Last Vital Signs Temp Pulse 116 H 08/30/19 01:11 Resp 18 08/30/19 01:45 BP 137/84 08/30/19 01:11 Pulse Ox 97 08/30/19 01:45 - Orders/Labs/Meds Orders: Active Orders 24 hr Category Date Time Status RT Aerosol Therapy [RC] ASDIRECTED Care 08/30/19 01:23 Active Meds: Medications Discontinued Medications Generic Name Dose Route Start Last Admin Trade Name Freq PRN Reason Stop Dose Admin Albuterol/Ipratropium 3 ml 08/30/19 01:23 08/30/19 01:29 Duoneb 3.0-0.5 Mg/3 Ml NEB 08/30/19 01:24 3 ml ONETIME ONE Administration Prednisone 60 mg 08/30/19 01:23 08/30/19 01:28 Prednisone PO 08/30/19 01:24 60 mg ONETIME ONE Administration Departure - Departure Time of Disposition: 01:57 Disposition: Home, Self-Care 01 Condition: Good Clinical Impression: Acute asthma exacerbation - Discharge Information Instructions: Asthma, Adult Referrals: PCP,None [Primary Care Provider] - Forms: ED Department Discharge Additional Instructions: Albuterol as needed. Quit smoking cigarettes. Return to ER if worse. Follow- up with PCP if not improving. Prednisone as prescribed. Care Plan Goals: The following information is given to patients seen in the emergency department who are being discharged to home. This information is to outline your options for follow-up care. We provide all patients seen in our emergency department with a follow-up referral. The need for follow-up, as well as the timing and circumstances, are variable depending upon the specifics of your emergency department visit. If you don't have a primary care physician on staff, we will provide you with a referral. We always advise you to contact your personal physician following an emergency department visit to inform them of the circumstance of the visit and for follow-up with them and/or the need for any referrals to a consulting specialist. The emergency department will also refer you to a specialist when appropriate. This referral assures that you have the opportunity for follow-up care with a specialist. All of these measure are taken in an effort to provide you with optimal care, which includes your follow-up. Under all circumstances we always encourage you to contact your private physician who remains a resource for coordinating your care. When calling for follow-up care, please make the office aware that this follow-up is from your recent emergency room visit. If for any reason you are refused follow-up, please contact the [facility] Emergency Department at and asked to speak to the emergency department charge nurse. Sepsis Event Note - Focused Exam Vital Signs: Vital Signs Pulse Resp BP Pulse Ox 08/30/19 01:45 18 97 08/30/19 01:11 116 H 18 137/84 94 L Date Exam was Performed: 08/30/19 Time Exam was Performed: 01:56 - My Orders Last 24 Hours: My Active Orders 08/30/19 01:23 RT Aerosol Therapy [RC] ASDIRECTED - Assessment/Plan Last 24 Hours: My Active Orders 08/30/19 01:23 RT Aerosol Therapy [RC] ASDIRECTED
== END 2019-08-30 02:10 | disposition home or self-care (01) ==
LOC: MW.ED 01:10
DX: J45.901 Unspecified asthma with (acute) exacerbation (principal); Z91.09 Other allergy status, other than to drugs and biological substances
CPT/HCPCS: 99284; A9270; 99282; J7620-GY

== ENCOUNTER 2020-10-11 22:11 | Emergency (ER) | payer MEDICAID ==
[2020-10-11] MEDS ORDERED: Albuterol/Ipratropium 3.0-0.5 MG/3 ML Neb Soln ONE (22:13)
[2020-10-11] MEDS ORDERED: methylPREDNISolone Sodium Succinate 125 MG/2 ML SDV IVPUSH ONE (22:16)
[2020-10-11] MEDS ORDERED: Albuterol/Ipratropium 3.0-0.5 MG/3 ML Neb Soln NEB ONE (22:16)
[2020-10-11 22:17] VITALS: BP 132/78; PULSE 128
[2020-10-11] MEDS: Albuterol/Ipratropium 3.0-0.5 MG/3 ML Neb Soln NEB ONE ×2 (22:23→22:28)
[2020-10-11] MEDS ORDERED: methylPREDNISolone Sodium Succinate 125 MG/2 ML SDV IM ONE (22:25)
--- NOTE | 2020-10-11 22:25 | EDM.PDOC ---
ED HPI GENERAL MEDICAL PROBLEM - General Chief Complaint: Respiratory Problem Stated Complaint: ASTHMA ATTACK Time Seen by Provider: 10/11/20 22:12 Source of Information: Reports: Patient History Limitations: Reports: No Limitations - History of Present Illness INITIAL COMMENTS - FREE TEXT/NARRATIVE: 25-year-old male past medical history asthma presents for apparent asthma exac erbation. History is from patient. He states that he has struggled with asthma for his entire life but has felt worsening shortness of breath, wheezing, chest tightness over the last 2 days. He denies any cough or fevers. He notes that he has a Ventolin inhaler at home but it does not seem to be helping. He denies recent systemic steroid or antibiotic use. - Related Data Allergies Allergy/AdvReac Type Severity Reaction Status Date / Time cat dander Allergy Hives Verified 10/11/20 22:13 dog dander Allergy Hives Verified 10/11/20 22:13 Home Meds: Home Meds Fluticasone/Salmeterol [Advair 100-50] 1 puff INH BID #1 diskus 05/28/19 [Rx] Albuterol [Ventolin HFA] 2 puff INH Q4HR PRN #1 inhaler 10/31/19 [Rx] Venlafaxine [Effexor XR] 150 mg PO DAILY 10/31/19 [History] cloNIDine HCL [Clonidine HCl] 1 tab PO DAILY 10/31/19 [History] hydrOXYzine HCL [Atarax] 50 mg PO DAILY 10/31/19 [History] lamoTRIgine [Lamotrigine] 0 mg PO DAILY 10/31/19 [History] methylPREDNISolone [Medrol Dose Pack] 4 mg PO ASDIRECTED #1 dospk 10/31/19 [Rx] Albuterol [Ventolin HFA] 1 puff INH Q4H PRN #1 inhaler 10/11/20 [Rx] Albuterol [Ventolin HFA] 1 puff INH Q4H PRN #1 inhaler 10/11/20 [Rx] predniSONE 40 mg PO DAILY #10 tab 10/11/20 [Rx] predniSONE 40 mg PO DAILY 5 Days #10 tab 10/11/20 [Rx] Past Medical History HEENT History: Reports: None Cardiovascular History: Reports: None Respiratory History: Reports: Asthma Other Respiratory History: hx of collapsed lung- right Gastrointestinal History: Reports: None Genitourinary History: Reports: None Musculoskeletal History: Reports: None Neurological History: Reports: None Psychiatric History: Reports: ADHD, Anxiety, Depression Endocrine/Metabolic History: Reports: None Hematologic History: Reports: None Immunologic History: Reports: None Oncologic (Cancer) History: Reports: None Dermatologic History: Reports: None - Infectious Disease History Infectious Disease History: Reports: None - Past Surgical History Cardiovascular Surgical History: Reports: None Respiratory Surgical History: Reports: None Male Surgical History: Reports: None Endocrine Surgical History: Reports: None Neurological Surgical History: Reports: None Musculoskeletal Surgical History: Reports: None Oncologic Surgical History: Reports: None Dermatological Surgical History: Reports: None Social & Family History - Family History Family Medical History: No Pertinent Family History - Caffeine Use Caffeine Use: Reports: Energy Drinks ED ROS GENERAL - Review of Systems Review Of Systems: Comprehensive ROS is negative, except as noted in HPI. ED EXAM, GENERAL - Physical Exam Exam: See Below Exam Limited By: No Limitations General Appearance: Alert, WD/WN, No Apparent Distress Ears: Hearing Grossly Normal Throat/Mouth: Normal Voice, No Airway Compromise Head: Atraumatic, Normocephalic Neck: Normal Inspection Respiratory/Chest: No Respiratory Distress, No Accessory Muscle Use, Wheezing, Other (tachypnea, good air entry, b/l insp/expiratory wheezing, speaks in full sentences) Neurological: Alert Psychiatric: Normal Affect, Normal Mood Skin Exam: Warm, Dry, Intact, Normal Color #1 Interpretation EKG Date: 10/11/20 Time: 22:30 Rhythm: NSR Rate (Beats/Min): 124 [place]: Normal P-Wave: Present QRS: Normal ST-T: Normal QT: Normal AL/PQ Interval: 124 EKG Interpretation Comments: Poor quality EKG obscures interpretation however there is no overt ischemic changes or signs of right heart strain Course - Vital Signs Last Recorded V/S: Last Vital Signs Temp 97.5 F 10/11/20 22:13 Pulse 128 H 10/11/20 22:13 Resp 24 H 10/11/20 22:13 BP 132/78 10/11/20 22:13 Pulse Ox 92 L 10/11/20 22:13 - Orders/Labs/Meds Orders: Active Orders 24 hr Category Date Time Status Cardiac Monitoring [RC] . DIRECTED Care 10/11/20 22:18 Active EKG Documentation Completion [RC] STAT Care 10/11/20 22:16 Active Pulse Oximetry [RC] ASDIRECTED Care 10/11/20 22:18 Active RT Aerosol Therapy [RC] ASDIRECTED Care 10/11/20 22:12 Active Chest 1V Frontal [CR] Stat Exams 10/11/20 22:16 Taken Meds: Medications Discontinued Medications Generic Name Dose Route Start Last Admin Trade Name Anibal PRN Reason Stop Dose Admin Albuterol/Ipratropium 3 ml 10/11/20 22:12 10/11/20 22:28 Albuterol/Ipratropium 3.0-0.5 Mg/3 Ml Neb Soln NEB 10/11/20 22:13 3 ml ONETIME ONE Administration Albuterol/Ipratropium Confirm 10/11/20 22:13 10/11/20 22:21 Albuterol/Ipratropium 3.0-0.5 Mg/3 Ml Neb Soln Administered 10/11/20 22:14 Not Given Dose 3 ml .ROUTE .STK-MED ONE Albuterol/Ipratropium 3 ml 10/11/20 22:16 10/11/20 22:28 Albuterol/Ipratropium 3.0-0.5 Mg/3 Ml Neb Soln NEB 10/11/20 22:17 3 ml ONETIME ONE Administration Methylprednisolone Sodium Succinate 125 mg 10/11/20 22:16 10/11/20 22:28 Methylprednisolone Sodium Succinate 125 Mg/2 Ml Sdv IVPUSH 10/11/20 22:17 125 mg ONETIME ONE Administration Methylprednisolone Sodium Succinate 125 mg 10/11/20 22:25 10/11/20 22:30 Methylprednisolone Sodium Succinate 125 Mg/2 Ml Sdv IM 10/11/20 22:26 Not Given ONETIME ONE - Re-Assessments/Exams Free Text/Narrative Re-Assessment/Exam: 10/11/20 22:23 Patient's presentation is consistent with an asthma exacerbation. He is tachycardic to the 120s and O2 sats in the low 90s. Will get chest x-ray. Will get EKG considering the tachycardia. Will give 2 times duo nebs and Solu- Medrol IM. If patient's condition is improving will discharge with treatment for asthma exacerbation. Will consider labs if patient's condition does not rapidly improving after medication. 10/11/20 22:52 Patient eloped from the emergency department after receiving duo nebs and Solu- Medrol IM. His prescriptions were sent to the pharmacy. I did not get a chance to reassess him following the breathing treatments nor did we get a chance to get repeat vitals as he left the emergency department. Departure - Departure Time of Disposition: 22:52 Disposition: Against Medical Advice 07 Condition: Fair Clinical Impression: Asthma exacerbation Qualifiers: Asthma severity: moderate Asthma persistence: persistent Qualified Code(s): J45.41 - Moderate persistent asthma with (acute) exacerbation - Discharge Information Prescriptions: predniSONE 40 mg PO DAILY #10 tab predniSONE 40 mg PO DAILY 5 Days #10 tab Albuterol [Ventolin HFA] 1 puff INH Q4H PRN #1 inhaler PRN Reason: Wheezing Albuterol [Ventolin HFA] 1 puff INH Q4H PRN #1 inhaler PRN Reason: Wheezing Instructions: Asthma, Adult Referrals: PCP,None [Primary Care Provider] - Forms: ED Department Discharge Additional Instructions: The following information is given to patients seen in the emergency department who are being discharged to home. This information is to outline your options for follow-up care. We provide all patients seen in our emergency department with a follow-up referral. The need for follow-up, as well as the timing and circumstances, are variable depending upon the specifics of your emergency department visit. If you don't have a primary care physician on staff, we will provide you with a referral. We always advise you to contact your personal physician following an emergency department visit to inform them of the circumstance of the visit and for follow-up with them and/or the need for any referrals to a consulting specialist. The emergency department will also refer you to a specialist when appropriate. This referral assures that you have the opportunity for follow-up care with a specialist. All of these measure are taken in an effort to provide you with optimal care, which includes your follow-up. Under all circumstances we always encourage you to contact your private physician who remains a resource for coordinating your care. When calling for follow-up care, please make the office aware that this follow-up is from your recent emergency room visit. If for any reason you are refused follow-up, please contact the [facility] Emergency Department at and asked to speak to the emergency department charge nurse. Please follow up with your primary care physician. If you do not have a primary care physician, see below: [facility] [address], [place] [address] [facility] [address] [place] [address] [facility] [address] [place] [address] Sepsis Event Note (ED) - Evaluation Sepsis Screening Result: No Definite Risk - Focused Exam Vital Signs: Vital Signs Temp Pulse Resp BP Pulse Ox 10/11/20 22:13 97.5 F 128 H 24 H 132/78 92 L - My Orders Last 24 Hours: My Active Orders 10/11/20 22:12 RT Aerosol Therapy [RC] ASDIRECTED 10/11/20 22:16 EKG Documentation Completion [RC] STAT Chest 1V Frontal [CR] Stat 10/11/20 22:18 Cardiac Monitoring [RC] . DIRECTED Pulse Oximetry [RC] ASDIRECTED - Assessment/Plan Last 24 Hours: My Active Orders 10/11/20 22:12 RT Aerosol Therapy [RC] ASDIRECTED 10/11/20 22:16 EKG Documentation Completion [RC] STAT Chest 1V Frontal [CR] Stat 10/11/20 22:18 Cardiac Monitoring [RC] . DIRECTED Pulse Oximetry [RC] ASDIRECTED
--- NOTE | 2020-10-11 22:52 | CR ---
INDICATION: Asthma exacerbation TECHNIQUE: Chest radiograph 1 view on 2 films COMPARISON: 05/30/2019 FINDINGS: Mediastinum: The mediastinum is normal in appearance. The heart silhouette is normal in size and morphology. Lung: Both lungs are unremarkable in appearance. No sign of pleural effusion seen. No pneumothorax is identified. Bone and Soft tissue: Unremarkable for age. IMPRESSION: 1. No acute cardiopulmonary disease is seen. Dictated by: Rik Fulton MD @ 10/11/2020 22:51:03 (Electronically Signed)
== END 2020-10-11 22:56 | disposition left against medical advice (07) ==
LOC: MW.ED 22:11
DX: J45.41 Moderate persistent asthma with (acute) exacerbation (principal); Z91.048 Other nonmedicinal substance allergy status
CPT/HCPCS: 71045; 93005; 96374; 99285; J2930; 93010; 99283; J7620-GY

== ENCOUNTER 2020-11-19 15:47 | Emergency (ER) | payer MEDICAID ==
[2020-11-19] MEDS ORDERED: Bacitracin Oint 1 GM U/D Packet TOP ONE (16:03)
[2020-11-19] MEDS ORDERED: Lidocaine 1% PF 2 ML SDV INJECT ONE (16:03)
[2020-11-19] MEDS ORDERED: Diphtheria,Pertussis(Acell),Tetanus Vaccine 0.5 ML Syringe IM ONE (16:03)
--- NOTE | 2020-11-19 16:05 | EDM.PDOC ---
ED HPI GENERAL MEDICAL PROBLEM - General Chief Complaint: Laceration Stated Complaint: CUT ON RIGHT HAND Time Seen by Provider: 11/19/20 15:53 Source of Information: Reports: Patient History Limitations: Reports: No Limitations - History of Present Illness INITIAL COMMENTS - FREE TEXT/NARRATIVE: HISTORY AND PHYSICAL: History of present illness: Patient is a 25-year-old male who presents to the emergency room with complaints of a laceration to his right index finger. He states he was using a butter knife when it slipped resulting in a laceration. He is unsure of his last t etanus update. He denies any other bodily injury. He offers no systemic complaints. Review of systems: As per history of present illness and below otherwise all systems reviewed and negative. Past medical history: As per history of present illness and as reviewed below otherwise noncontributory. Surgical history: As per history of present illness and as reviewed below otherwise noncontribu tory. Social history: See social history for further information Family history: As per history of present illness and as reviewed below otherwise noncontributory. Physical exam: General: Well developed and well nourished. Alert and orientated x 3. Nontoxic in appearance and in no acute distress. Vital signs are stable and have been reviewed by me. Nursing notes were reviewed. HEENT: Atraumatic, normocephalic, pupils equal and reactive bilaterally, negative for conjunctival pallor or scleral icterus, mucous membranes moist, TMs normal bilaterally, throat clear, neck supple, nontender, trachea midline. No drooling or trismus noted. No meningeal signs. No hot potato voice noted. Lungs: Clear to auscultation bilaterally. No wheezes, rales, or rhonchi. Chest nontender. Normal work of breathing, no accessory muscles used. Heart: S1S2, regular rate and rhythm without overt murmur, gallops, or rubs. No JVD. No peripheral edema Abdomen: Soft, nondistended, nontender. Normoactive bowel sounds. Negative for masses or costovertebral tenderness. Pelvis: Stable nontender. Genitourinary/Rectal: Deferred. Skin: 2 cm "C" shaped laceration to volar aspect of right index finger. Superficial 1 cm linear laceration above it. Remaining skin is intact, warm, dry. No lesions or rashes noted. Hematologic: No petechiae or purpra. Mucosa appropriate color and normal nail bed color and refill. Extremities: Atraumatic, moves all extremities per self without difficulty or deficits, negative for cords or calf pain. Neurovascular unremarkable. Neuro: Awake, alert, oriented. Cranial nerves II through XII unremarkable. Cerebellum unremarkable. Motor and sensory unremarkable throughout. Exam nonfocal. Psychiatric: Mood and affect are appropriate. Normal thought process. Answering questions appropriately. Notes: *This patient was seen and evaluated during the 2019 SARS-CoV-2 novel coronavirus pandemic period. Community viral transmission is ongoing at time of this encounter and the emergency department is operating under pandemic response procedures. Patient is a 25-year-old male who presents to the emergency room with complaints of a laceration. He does have a C-shaped laceration to the palmar aspect of the right index finger. Appears to have no tendon involvement. Good flexion and extension of the finger. We will update his tetanus. 1% lidocaine was used to anesthetize the area. Area was thoroughly cleansed with chlorhexidine and wound wash. Usual and customary procedures were followed for suture placement. 4-0 nylon, #4 were placed to the "C" shaped laceration. The superficial laceration does not require any further treatment. Bacitracin nonstick dressing applied. I have talked with the patient about today's findings, in addition to providing specific details for plan of care. Reassessment at the time of disposition demonstrates that the patient is in no acute distress. The patient is stable for discharge, counseling was provided and we discussed in great detail signs and symptoms that would prompt them to return to the Emergency Department. Medication, follow up and supportive care measures were reviewed and discussed. Voices understanding and is agreeable to plan of care. Denies any further questions or concerns at this time. Diagnostics: None Therapeutics: Tdap, lidocaine, bacitracin Prescription: None Impression: Laceration Plan: 1. You were evaluated today on an emergent basis. Gently wash the area twice daily with mild soap and water. Please keep your skin clean and dry. Continue to monitor for signs of improvement. Sutures are to be removed in 7 to 10 days. 2. You can alternate Tylenol and ibuprofen as needed for pain and fever management. 3. We encourage you to follow up with your primary care provider and/or recomme nded specialist in the next few days for re-evaluation and further care/management. 4. If your symptoms should worsen, new symptoms develop or any of the signs and symptoms we discussed should arise please return to the emergency room or call 911 (if needed). Definitive disposition and diagnosis as appropriate pending reevaluation and review of above. - Related Data Allergies Allergy/AdvReac Type Severity Reaction Status Date / Time amoxicillin Allergy Itching Verified 11/19/20 16:03 cat dander Allergy Hives Verified 10/11/20 22:13 dog dander Allergy Hives Verified 10/11/20 22:13 Penicillins Allergy Itching Verified 11/19/20 16:03 Home Meds: Home Meds Albuterol [Ventolin HFA] 1 puff INH Q4H PRN #1 inhaler 10/11/20 [Rx] Past Medical History HEENT History: Reports: None Cardiovascular History: Reports: None Respiratory History: Reports: Asthma Other Respiratory History: hx of collapsed lung- right Gastrointestinal History: Reports: None Genitourinary History: Reports: None Musculoskeletal History: Reports: None Neurological History: Reports: None Psychiatric History: Reports: ADHD, Anxiety, Depression Endocrine/Metabolic History: Reports: None Hematologic History: Reports: None Immunologic History: Reports: None Oncologic (Cancer) History: Reports: None Dermatologic History: Reports: None - Infectious Disease History Infectious Disease History: Reports: None - Past Surgical History Cardiovascular Surgical History: Reports: None Respiratory Surgical History: Reports: None Male Surgical History: Reports: None Endocrine Surgical History: Reports: None Neurological Surgical History: Reports: None Musculoskeletal Surgical History: Reports: None Oncologic Surgical History: Reports: None Dermatological Surgical History: Reports: None Social & Family History - Family History Family Medical History: No Pertinent Family History - Caffeine Use Caffeine Use: Reports: Energy Drinks ED ROS GENERAL - Review of Systems Review Of Systems: Comprehensive ROS is negative, except as noted in HPI. ED EXAM, SKIN/RASH Exam: See Below (See dictation) ED SKIN PROCEDURES - Laceration/Wound Repair Right finger Appearance: Subcutaneous, Irregular, Clean Distal NVT: Neuro & Vascular Intact, No Tendon Injury Anesthetic Type: Local Local Anesthesia - Lidocaine (Xylocaine): 1% Plain Local Anesthetic Volume: 2cc Skin Prep: Chlorhexidine (Hibiciens), Saline, Sterile Drape Saline Irrigation (cc's): 250 Exploration/Debridement/Repair: Wound Explored, In a Bloodless Field, Explored to Base, No Foreign Material Found Closed with: Sutures Lac/Wound length In cm: 2 Suture Size: 4-0 # of Sutures: 4 Suture Type: Nylon, Interrupted, Simple Drain Placement: No Sterile Dressing Applied: Provider Tetanus Status Addressed: Yes Complications: No Course - Vital Signs Last Recorded V/S: Last Vital Signs Temp 97.2 F 11/19/20 16:00 Pulse 87 11/19/20 16:00 Resp 16 11/19/20 16:00 BP 121/77 11/19/20 16:00 Pulse Ox 97 11/19/20 16:00 - Orders/Labs/Meds Orders: Active Orders 24 hr Category Date Time Status Vaccines to be Administered [RC] PER UNIT ROUTINE Care 11/19/20 16:03 Ordered Meds: Medications Discontinued Medications Generic Name Dose Route Start Last Admin Trade Name Anibal PRN Reason Stop Dose Admin Bacitracin 1 dose 11/19/20 16:03 11/19/20 16:21 Bacitracin Oint 1 Gm U/D Packet TOP 11/19/20 16:04 1 dose ONETIME ONE Administration Diphtheria/Tetanus/Acell Pertussis 0.5 ml 11/19/20 16:03 11/19/20 16:21 Diphtheria,Pertussis(Acell),Tetanus Vaccine 0.5 Ml Syringe IM 11/19/20 16:04 0.5 ml .ONCE ONE Administration Lidocaine HCl 2 ml 11/19/20 16:03 11/19/20 16:22 Lidocaine 1% Pf 2 Ml Sdv INJECT 11/19/20 16:04 2 ml ONETIME ONE Administration Departure - Departure Time of Disposition: 16:34 Disposition: Home, Self-Care 01 Clinical Impression: Laceration - Discharge Information Instructions: Laceration Care, Adult, [id number] Referrals: Esha Lozano MD [Primary Care Provider] - Forms: ED Department Discharge Additional Instructions: The following information is given to patients seen in the emergency department who are being discharged to home. This information is to outline your options for follow-up care. We provide all patients seen in our emergency department with a follow-up referral. The need for follow-up, as well as the timing and circumstances, are variable depending upon the specifics of your emergency department visit. If you don't have a primary care physician on staff, we will provide you with a referral. We always advise you to contact your personal physician following an e mergency department visit to inform them of the circumstance of the visit and for follow-up with them and/or the need for any referrals to a consulting specialist. The emergency department will also refer you to a specialist when appropriate. This referral assures that you have the opportunity for follow-up care with a specialist. All of these measure are taken in an effort to provide you with op timal care, which includes your follow-up. Under all circumstances we always encourage you to contact your private physician who remains a resource for coordinating your care. When calling for follow-up care, please make the office aware that this follow-up is from your recent emergency room visit. If for any reason you are refused follow-up, please contact the [facility] Emergency Department at and asked to speak to the emergency department charge nurse. [facility] [address] [place] [id number] [facility] [address] [place] [id number] Thank you for choosing the [facility] emergency department in [place] for your medical needs today. It was a pleasure caring for you. Today you were seen in the emergency department for laceration care. 1. You were evaluated today on an emergent basis. Gently wash the area twice daily with mild soap and water. Please keep your skin clean and dry. Continue to monitor for signs of improvement. Sutures are to be removed in 7 to 10 days. 2. You can alternate Tylenol and ibuprofen as needed for pain and fever management. 3. We encourage you to follow up with your primary care provider and/or recommended specialist in the next few days for re-evaluation and further care/management. 4. If your symptoms should worsen, new symptoms develop or any of the signs and symptoms we discussed should arise please return to the emergency room or call 911 (if needed). Sepsis Event Note (ED) - Evaluation Sepsis Screening Result: No Definite Risk - Focused Exam Vital Signs: Vital Signs Temp Pulse Resp BP Pulse Ox 11/19/20 16:00 97.2 F 87 16 121/77 97 - My Orders Last 24 Hours: My Active Orders 11/19/20 16:03 Vaccines to be Administered [RC] PER UNIT ROUTINE - Assessment/Plan Last 24 Hours: My Active Orders 11/19/20 16:03 Vaccines to be Administered [RC] PER UNIT ROUTINE
[2020-11-19 18:51] VITALS: BP 121/73; PULSE 78
== END 2020-11-19 17:11 | disposition home or self-care (01) ==
LOC: MW.ED 15:47
DX: S61.210A Laceration without foreign body of right index finger without damage to nail, initial encounter (principal); J45.909 Unspecified asthma, uncomplicated; Z23 Encounter for immunization; Z88.0 Allergy status to penicillin; Z91.048 Other nonmedicinal substance allergy status; W26.0XXA Contact with knife, initial encounter
CPT/HCPCS: 12001; 90471; 90715; 99282-25

== ENCOUNTER 2020-12-02 02:54 | Emergency (ER) | payer MEDICAID ==
[2020-12-02 02:57] VITALS: BP 110/83; PULSE 96
--- NOTE | 2020-12-02 03:08 | EDM.PDOC ---
ED HPI GENERAL MEDICAL PROBLEM - General Chief Complaint: Lower Extremity Injury/Pain Stated Complaint: RIGHT FOOT PAIN Time Seen by Provider: 12/02/20 02:56 Source of Information: Reports: Patient History Limitations: Reports: No Limitations - History of Present Illness INITIAL COMMENTS - FREE TEXT/NARRATIVE: Patient is a 25-year-old male who presents today for right foot pain. Patient states that he was hitting a punching bag and he also kicked that caused some swelling and pain to the dorsal side of his right foot. Patient able to ambulate on it but does have some pain with dorsiflexion. Patient denies any other injuries or complaints. Patient is not take any medication for this pain. - Related Data Allergies Allergy/AdvReac Type Severity Reaction Status Date / Time amoxicillin Allergy Itching Verified 12/02/20 02:57 cat dander Allergy Hives Verified 12/02/20 02:57 dog dander Allergy Hives Verified 12/02/20 02:57 Penicillins Allergy Itching Verified 12/02/20 02:57 Home Meds: Home Meds Albuterol [Ventolin HFA] 1 puff INH Q4H PRN #1 inhaler 10/11/20 [Rx] Past Medical History HEENT History: Reports: None Cardiovascular History: Reports: None Respiratory History: Reports: Asthma Other Respiratory History: hx of collapsed lung- right Gastrointestinal History: Reports: None Genitourinary History: Reports: None Musculoskeletal History: Reports: None Neurological History: Reports: None Psychiatric History: Reports: ADHD, Anxiety, Depression Endocrine/Metabolic History: Reports: None Hematologic History: Reports: None Immunologic History: Reports: None Oncologic (Cancer) History: Reports: None Dermatologic History: Reports: None - Infectious Disease History Infectious Disease History: Reports: None - Past Surgical History Head Surgeries/Procedures: Reports: None HEENT Surgical History: Reports: None Cardiovascular Surgical History: Reports: None Respiratory Surgical History: Reports: None GI Surgical History: Reports: None Male Surgical History: Reports: None Endocrine Surgical History: Reports: None Neurological Surgical History: Reports: None Musculoskeletal Surgical History: Reports: None Oncologic Surgical History: Reports: None Dermatological Surgical History: Reports: None Social & Family History - Family History Family Medical History: No Pertinent Family History - Caffeine Use Caffeine Use: Reports: Energy Drinks - Recreational Drug Use Recreational Drug Use: No Review of Systems - Review of Systems Review Of Systems: See Below Constitutional: Reports: No Symptoms Eyes: Reports: No Symptoms Ears: Reports: No Symptoms Nose: Reports: No Symptoms Mouth/Throat: Reports: No Symptoms Respiratory: Reports: No Symptoms Cardiovascular: Reports: No Symptoms GI/Abdominal: Reports: No Symptoms Genitourinary: Reports: No Symptoms Musculoskeletal: Reports: Foot Pain Skin: Reports: No Symptoms Neurological: Reports: No Symptoms Psychiatric: Reports: No Symptoms ED EXAM, GENERAL - Physical Exam Exam: See Below Exam Limited By: No Limitations General Appearance: Alert, WD/WN, No Apparent Distress Eye Exam: Bilateral Eye: EOMI, PERRL Respiratory/Chest: No Respiratory Distress, No Accessory Muscle Use Cardiovascular: Normal Peripheral Pulses Extremities: Normal Range of Motion. No: Normal Inspection (To the dorsal side of her right foot), Non-Tender (Tenderness to the dorsal side of right foot foot) Neurological: Alert, Oriented, Normal Cognition Course - Vital Signs Last Recorded V/S: Last Vital Signs Temp 98.4 F 12/02/20 02:55 Pulse 96 12/02/20 02:55 Resp 16 12/02/20 02:55 BP 110/83 12/02/20 02:55 Pulse Ox 98 12/02/20 02:55 - Re-Assessments/Exams Free Text/Narrative Re-Assessment/Exam: 12/02/20 03:56 Patient x-ray negative will be discharged Departure - Departure Time of Disposition: 03:57 Disposition: Home, Self-Care 01 Condition: Good Clinical Impression: Foot injury - Discharge Information *PRESCRIPTION DRUG MONITORING PROGRAM REVIEWED*: Not Applicable *COPY OF PRESCRIPTION DRUG MONITORING REPORT IN PATIENT TALI: Not Applicable Instructions: Foot Sprain Forms: ED Department Discharge Additional Instructions: The following information is given to patients seen in the emergency department who are being discharged to home. This information is to outline your options for follow-up care. We provide all patients seen in our emergency department with a follow-up referral. The need for follow-up, as well as the timing and circumstances, are variable depending upon the specifics of your emergency department visit. If you don't have a primary care physician on staff, we will provide you with a referral. We always advise you to contact your personal physician following an emergency department visit to inform them of the circumstance of the visit and for follow-up with them and/or the need for any referrals to a consulting specialist. The emergency department will also refer you to a specialist when appropriate. This referral assures that you have the opportunity for follow-up care with a specialist. All of these measure are taken in an effort to provide you with optimal care, which includes your follow-up. Under all circumstances we always encourage you to contact your private physician who remains a resource for coordinating your care. When calling for follow-up care, please make the office aware that this follow-up is from your recent emergency room visit. If for any reason you are refused follow-up, please contact the [facility] Emergency Department at and asked to speak to the emergency department charge nurse. Please follow up with your primary care physician. If you do not have a primary care physician, see below: [facility] [address] [place] [phone] [facility] [address] [place] [phone] Your x-ray did not show any fractures are stable for discharge please follow the primary care physician Sepsis Event Note (ED) - Evaluation Sepsis Screening Result: No Definite Risk - Focused Exam Vital Signs: Vital Signs Temp Pulse Resp BP Pulse Ox 12/02/20 02:55 98.4 F 96 16 110/83 98 - Assessment/Plan Plan: Patient is a 25-year-old male presents today for right foot pain. Patient dates that he kicked a punching bag and now has pain and swelling to the site. Will obtain x-ray and reassess.
--- NOTE | 2020-12-02 03:54 | CR ---
Indication: Pain after injury Technique: Three views Comparison: None Findings: Bones: Alignment is normal. No fractures or bone lesions. Joint spaces: Unremarkable. Soft tissues: Unremarkable. Dictated by Adalid Huerta MD @ 12/02/2020 3:54:[address] Adalid Huerta @ Dec 02 2020 3:54AM
== END 2020-12-02 04:10 | disposition home or self-care (01) ==
LOC: MW.ED 02:54
DX: S99.921A Unspecified injury of right foot, initial encounter (principal); Z88.0 Allergy status to penicillin; Z91.09 Other allergy status, other than to drugs and biological substances; W50.1XXA Accidental kick by another person, initial encounter
CPT/HCPCS: 73630-26-RT; 73630-RT; 99283-25

== ENCOUNTER 2021-04-16 22:14 | Emergency (ER) | payer MEDICAID ==
[2021-04-16] MEDS ORDERED: cefTRIAXone 1 GM Vial IM ONE (22:49)
[2021-04-16] MEDS ORDERED: Lidocaine 1% PF 2 ML SDV INJECT ONE (22:53)
--- NOTE | 2021-04-16 23:22 | EDM.PDOC ---
ED HPI GENERAL MEDICAL PROBLEM - General Chief Complaint: Medication Administration Stated Complaint: STD Time Seen by Provider: 04/16/21 22:29 - History of Present Illness INITIAL COMMENTS - FREE TEXT/NARRATIVE: CHIEF COMPLAINT(S): STD HISTORY OF PRESENT ILLNESS: This is a 25-year-old man on with a prior history of chlamydia who comes to the emergency department with a chief complaint of STD. The patient states that he is from out of [place]. He states that he has been experiencing penile discharge and burning with urination. He denies any testicular pain or swelling. He states that he went to an outpatient clinic and had testing for gonorrhea and chlamydia. He was informed today that his gonorrhea was positive and chlamydia was negative. He states that he is here for treatment. He states that he has continued penile discharge and pain. He currently rates his pain as 8 out of 10 especially when urinating. He has not tried anything for the pain. Pain is exacerbated by urinating. There is no relieving factors. He is requesting treatment. REVIEW OF SYSTEMS: Constitutional: Denies fever, chills. Eyes: Denies eye pain Ears, Nose, Mouth, & Throat: Denies earache Cardiovascular: Denies chest pain Respiratory: Denies shortness of breath Gastrointestinal: Denies Nausea, vomiting, diarrhea, hematochezia. Genitourinary: Positive for penile discharge and dysuria. Denies hematuria or testicular pain Skin:Denies a rash MSK: Denies joint pain Neurological: Denies blurred vision Psychiatric: Denies depression PAST MEDICAL HISTORY: As per history of present illness and as reviewed below otherwise noncontributory. SURGICAL HISTORY: As per history of present illness and as reviewed below otherwise noncontributory. SOCIAL HISTORY: As per history of present illness and as reviewed below otherw ise noncontributory. FAMILY HISTORY: As per history of present illness and as reviewed below otherwise noncontributory. EXAMINATION OF ORGAN SYSTEMS/BODY AREAS: Constitutional: Blood pressure was 124/80, heart rate 97, respiratory rate 18 with an oxygen saturation of 99% on room air. Temperature 36 point General: Well-appearing man who is in no acute distress Psychiatric: Appropriate mood and affect. Eyes: No scleral icterus or conjunctival erythema Cardiovascular: Regular, rate, and rhythm. No gallops, murmurs, or rubs. Respiratory: Lungs clear to auscultation bilaterally. No wheezes, rales, or rhonchi. Genitourinary: No suprapubic tenderness there is no epididymal tenderness, testicular swelling. Positive cremasteric reflex. There is purulent drainage from the urethra. Skin: No lesions or abrasions. Neurological: Alert, GCS 15 MEDICAL DECISION MAKING AND COURSE IN THE ED WITH INTERPRETATION/REVIEW OF DIAGNOSTIC STUDIES: This is a 25-year-old man with a prior history of chlamydia who comes to the emergency department with positive outpatient gonorrhea test with purulent penile discharge consistent with gonorrhea. We will provide the patient with 1 g of IM ceftriaxone. The patient does have an allergic reaction to amoxicillin and penicillin which includes a rash. I did discuss with the patient would like to observe in the emergency department after administration of ceftriaxone. He was amenable to this plan. I did discuss strict return precautions with the patient and precautions for STD. He was amenable to this plan had no further questions. The patient was observed in the emergency department and had no reactions. At this time I did discuss strict return precautions with the patient. He was amenable discharge and had no further questions DISPOSITION: The patient was discharged home in stable condition. The patient will follow up with primary care physician as needed CONDITION: Fair PROCEDURES: None FINAL IMPRESSION(S)/DIAGNOSES: 1. Acute gonococcal urethritis Mulugeta Reed M.D. Perineal Area Pain Score (Numeric/FACES): 8 - Related Data Allergies Allergy/AdvReac Type Severity Reaction Status Date / Time amoxicillin Allergy Itching Verified 12/02/20 02:57 cat dander Allergy Hives Verified 12/02/20 02:57 dog dander Allergy Hives Verified 12/02/20 02:57 Penicillins Allergy Itching Verified 12/02/20 02:57 Home Meds: Home Meds Albuterol [Ventolin HFA] 1 puff INH Q4H PRN #1 inhaler 10/11/20 [Rx] Venlafaxine [Effexor XR] 150 mg PO DAILY 04/16/21 [History] busPIRone [Buspar] 30 mg PO DAILY 04/16/21 [History] traZODone HCl [Trazodone HCl] 100 mg PO 04/16/21 [History] Past Medical History HEENT History: Reports: None Cardiovascular History: Reports: None Respiratory History: Reports: Asthma Other Respiratory History: hx of collapsed lung- right Gastrointestinal History: Reports: None Genitourinary History: Reports: None Musculoskeletal History: Reports: None Neurological History: Reports: None Psychiatric History: Reports: ADHD, Anxiety, Depression Endocrine/Metabolic History: Reports: None Hematologic History: Reports: None Immunologic History: Reports: None Oncologic (Cancer) History: Reports: None Dermatologic History: Reports: None - Infectious Disease History Infectious Disease History: Reports: None - Past Surgical History Head Surgeries/Procedures: Reports: None HEENT Surgical History: Reports: None Cardiovascular Surgical History: Reports: None Respiratory Surgical History: Reports: None GI Surgical History: Reports: None Male Surgical History: Reports: None Endocrine Surgical History: Reports: None Neurological Surgical History: Reports: None Musculoskeletal Surgical History: Reports: None Oncologic Surgical History: Reports: None Dermatological Surgical History: Reports: None Social & Family History - Family History Family Medical History: No Pertinent Family History - Tobacco Use Tobacco Use Status *Q: Current Every Day Tobacco User Years of Tobacco use: 8 Packs/Tins Daily: 0.2 - Caffeine Use Caffeine Use: Reports: Energy Drinks - Recreational Drug Use Recreational Drug Use: No ED ROS GENERAL - Review of Systems Review Of Systems: See Below ED EXAM, GENERAL - Physical Exam Exam: See Below Course - Vital Signs Last Recorded V/S: Last Vital Signs Temp 36.6 C 04/16/21 22:33 Pulse 88 04/16/21 23:40 Resp 20 04/16/21 23:40 BP 131/86 04/16/21 23:40 Pulse Ox 99 04/16/21 23:40 - Orders/Labs/Meds Meds: Medications Discontinued Medications Generic Name Dose Route Start Last Admin Trade Name Anibal PRN Reason Stop Dose Admin Ceftriaxone Sodium 1 gm 04/16/21 22:49 04/16/21 23:00 Ceftriaxone 1 Gm Vial IM 04/16/21 22:50 1 gm ONETIME ONE Administration Lidocaine HCl 2 ml 04/16/21 22:53 04/16/21 23:00 Lidocaine 1% Pf 2 Ml Sdv INJECT 04/16/21 22:54 2 ml ONETIME ONE Administration Departure - Departure Time of Disposition: 23:21 Disposition: Home, Self-Care 01 Condition: Fair Clinical Impression: Gonorrhea - Discharge Information *PRESCRIPTION DRUG MONITORING PROGRAM REVIEWED*: No *COPY OF PRESCRIPTION DRUG MONITORING REPORT IN PATIENT TALI: No Instructions: Gonorrhea Referrals: PCP,Not In Area [Primary Care Provider] - Forms: ED Department Discharge Additional Instructions: You were evaluated today on an emergent basis. At this time we did provide you with a treatment for gonorrhea. Given that your chlamydia was negative we did not provide you with any treatment for this. I recommend that you refrain from sexual intercourse for the next 14 days. There is no need for repeat testing. It is important that you practice safe sex in the future. If you have any worsening symptoms or symptoms or not improving please return to the emergency department. [facility] [address] [place] [address] [id number] [address] [id number] The patient is informed of any results of their evaluation and diagnostic workup and all questions are answered. They are given discharge instructions and return precautions. The patient is stable for discharge. The patient states they understand and agree with the plan and that they will return if their symptoms get worse or if they have any new concerns. The following information is given to patients seen in the emergency department who are being discharged to home. This information is to outline your options for follow-up care. We provide all patients seen in our emergency department with a follow-up referral. The need for follow-up, as well as the timing and circumstances, are variable depending upon the specifics of your emergency department visit. If you don't have a primary care physician on staff, we will provide you with a referral. We always advise you to contact your personal physician following an emergency department visit to inform them of the circumstance of the visit and for follow-up with them and/or the need for any referrals to a consulting specialist. The emergency department will also refer you to a specialist when appropriate. This referral assures that you have the opportunity for follow-up care with a specialist. All of these measure are taken in an effort to provide you with optimal care, which includes your follow-up. Under all circumstances we always encourage you to contact your private physician who remains a resource for coordinating your care. When calling for follow-up care, please make the office aware that this follow-up is from your recent emergency room visit. If for any reason you are refused follow-up, please contact the [facility] Emergency Department at and asked to speak to the emergency department charge nurse. Sepsis Event Note (ED) - Evaluation Sepsis Screening Result: No Definite Risk
[2021-04-17 00:11] VITALS: BP 131/86; PULSE 88
== END 2021-04-16 23:40 | disposition home or self-care (01) ==
LOC: MW.ED 22:14
DX: A54.01 Gonococcal cystitis and urethritis, unspecified (principal); Z88.0 Allergy status to penicillin; Z91.09 Other allergy status, other than to drugs and biological substances; Z72.0 Tobacco use
CPT/HCPCS: 96372; 99283; J0696

== ENCOUNTER 2023-07-26 15:03 | Emergency (ER) | payer SELFPAY ==
[2023-07-26 15:18] VITALS: BP 118/76; PULSE 91
== END 2023-07-26 15:29 ==
LOC: MW.ED 15:03
DX: J45.909 Unspecified asthma, uncomplicated; Z88.0 Allergy status to penicillin; Z91.048 Other nonmedicinal substance allergy status; Z79.51 Long term (current) use of inhaled steroids; Z75.8 Other problems related to medical facilities and other health care
CPT/HCPCS: 99281; 99283

== ENCOUNTER 2023-08-21 12:46 | Emergency (ER) | payer SELFPAY ==
[2023-08-21 13:46] VITALS: BP 125/71; PULSE 81
== END 2023-08-21 13:27 | disposition home or self-care (01) ==
LOC: MW.ED 12:46
DX: J45.909 Unspecified asthma, uncomplicated (principal); Z79.51 Long term (current) use of inhaled steroids; Z88.0 Allergy status to penicillin; Z91.048 Other nonmedicinal substance allergy status
CPT/HCPCS: 99283

== ENCOUNTER 2023-09-11 10:09 | Emergency (ER) | payer SELFPAY ==
[2023-09-11 10:37] VITALS: BP 130/80; PULSE 77
== END 2023-09-11 11:07 | disposition home or self-care (01) ==
LOC: MW.ED 10:09
DX: Z76.0 Encounter for issue of repeat prescription (principal); J45.909 Unspecified asthma, uncomplicated; Z88.1 Allergy status to other antibiotic agents; Z91.048 Other nonmedicinal substance allergy status; Z88.0 Allergy status to penicillin; Z79.51 Long term (current) use of inhaled steroids; Z75.8 Other problems related to medical facilities and other health care
CPT/HCPCS: 99281; 99283